=== PATIENT | female | born 1975 | race African-American/Black ===

== ENCOUNTER → 2020-01-21 09:09 | Outpatient (BNVA) | payer OTHER, SELFPAY | PROVIDERS: PCP Family Medicine; Visit Provider Anesthesiology | DX: M47.817 Spondylosis without myelopathy or radiculopathy, lumbosacral region (principal); M79.7 Fibromyalgia; E66.01 Morbid (severe) obesity due to excess calories | CPT/HCPCS: 99212 ==

== ENCOUNTER 2020-02-03 05:11 | Outpatient (REF) | payer OTHER, SELFPAY ==
--- NOTE | 2020-02-03 07:35 | FL_ITS ---
EXAMINATION: XR FLUOROSCOPY WITH IMAGES CLINICAL INFORMATION: M47.817 - Spondylosis without myelopathy or radiculopathy COMPARISON: 6 fluoroscopic spot views lumbar spine 02/23/2017 TECHNIQUE: Fluoroscopy performed by Elizabeth Thomas NP. Fluoroscopy time: 0.7 minutes DAP: 11.0 Gycm2 Images: 3 FINDINGS: There are spinal needles overlying the outer aspect of the bilateral lumbosacral junction neural foramen. SI joints are unremarkable. FL/FL guidance in treatment room IMPRESSION: Fluoroscopy for pain management procedures.
== END 2020-02-03 05:12 | disposition home or self-care (01) ==
LOC: HO.RADIR 05:11
PROVIDERS: Visit Provider Anesthesiology
DX: M47.817 Spondylosis without myelopathy or radiculopathy, lumbosacral region (principal); E66.01 Morbid (severe) obesity due to excess calories; M79.7 Fibromyalgia
CPT/HCPCS: 64493; 64494; J3300; Q9967

== ENCOUNTER → 2020-02-17 08:56 | Outpatient (BNVA) | payer OTHER, SELFPAY | PROVIDERS: PCP Family Medicine; Visit Provider Student in an Organized Health Care Education/Training Program | DX: Z76.89 Persons encountering health services in other specified circumstances (principal) ==

== ENCOUNTER → 2020-03-15 14:29 | Outpatient (BNVA) | payer OTHER, SELFPAY | PROVIDERS: PCP Family Medicine; Visit Provider Anesthesiology ==

== ENCOUNTER 2020-05-04 06:04 | Outpatient (REF) | payer OTHER, SELFPAY | END 2020-05-04 06:05 | disposition home or self-care (01) | LOC: HO.RADIR 06:04 | PROVIDERS: Visit Provider Anesthesiology | DX: Z13.89 Encounter for screening for other disorder (principal) ==

== ENCOUNTER 2020-06-08 06:27 | Outpatient (REF) | payer OTHER, SELFPAY | END 2020-06-08 06:28 | disposition home or self-care (01) | LOC: HO.RADIR 06:27 | PROVIDERS: Visit Provider Anesthesiology | DX: Z13.89 Encounter for screening for other disorder (principal) ==

== ENCOUNTER 2021-01-20 10:19 | Outpatient (REF) | payer OTHER, SELFPAY ==
--- NOTE | ~2021-01-20 | XR_ITS ---
EXAMINATION: XR KNEE-BILATERAL CLINICAL INFORMATION: Bilateral knee pain. COMPARISON: None TECHNIQUE: 4 views each of both knees. FINDINGS: Right knee: The bony alignments are intact. The cortices are intact. Articular margins, joint space appear unremarkable. Soft tissues are unremarkable. No evidence of any joint effusion seen. Left knee: Asymmetric decreased joint space is noted (medial greater than lateral and patellofemoral compartments with evidence of subchondral sclerosis and osteophyte formations. The bony alignments are intact. There is no evidence of any joint effusion present. No focal osseous abnormalities. The findings are consistent with [id number] medial compartmental osteoarthrosis. XR/XR knee RT 3V IMPRESSION: Unremarkable radiographic appearance of the right knee. [id number] medial compartmental osteoarthrosis of the left knee.
--- NOTE | ~2021-01-20 | XR_ITS ---
EXAMINATION: XR CERVICAL SPINE CLINICAL INFORMATION: Cervical pain. COMPARISON: None TECHNIQUE: 3 views of the cervical spine were obtained. FINDINGS: There are no prevertebral soft tissue or bony abnormalities demonstrated. No compression fractures or subluxations are identified. There is mild straightening of cervical lordosis. Alignment is maintained at the atlanto-axial articulation. The disc spaces are preserved. No endplate changes are seen. The prevertebral soft tissues are normal. The foramina are patent. XR/XR cervical spine 2V IMPRESSION: Mild straightening of cervical lordosis likely spasm. Otherwise unremarkable cervical spine exam.
--- NOTE | ~2021-01-20 | XR_ITS ---
EXAMINATION: XR KNEE-BILATERAL CLINICAL INFORMATION: Bilateral knee pain. COMPARISON: None TECHNIQUE: 4 views each of both knees. FINDINGS: Right knee: The bony alignments are intact. The cortices are intact. Articular margins, joint space appear unremarkable. Soft tissues are unremarkable. No evidence of any joint effusion seen. Left knee: Asymmetric decreased joint space is noted (medial greater than lateral and patellofemoral compartments with evidence of subchondral sclerosis and osteophyte formations. The bony alignments are intact. There is no evidence of any joint effusion present. No focal osseous abnormalities. The findings are consistent with [id number]-[id number] medial compartmental osteoarthrosis. XR/XR knee LT 3V IMPRESSION: Unremarkable radiographic appearance of the right knee. Grtj-ip-[id number] medial compartmental osteoarthrosis of the left knee.
[2021-01-20 11:42] LABS: MANUAL DIFF FLAG NO
[2021-01-20 11:56] LABS: Basophils Percent Auto 0.4 % (0-2); Eosinophils Absolute Auto 0.3 X10*3/uL (0.0-0.4); Eosinophils Percent Auto 3.1 % (0-4); Hematocrit 35.6 % (37.0-47.0); Hemoglobin 11.3 g/dl (12.0-16.0); Imm Gran Abs Auto 0.03 X10*3/uL (0.00-0.03); Imm Gran Pct Auto 0.4 % (0.0-0.4); Lymphocytes Absolute Auto 2.3 X10*3/uL (1.2-4.9); Lymphocytes Percent Auto 26.8 % (20-40); Mean Corpuscular HGB Conc 31.7 g/dl (31.0-35.0); Mean Corpuscular Volume 91.5 fL (80.0-98.0); Mean Platelet Volume 8.6 fL (9.4-12.3); Monocytes Absolute Auto 0.6 X10*3/uL (0.1-1.2); Neutrophils Absolute Auto 5.3 x10*3/uL (2.0-8.3); Neutrophils Percent Auto 62.3 % (45-73); Platelet Count 309 X10*3/uL (160-400); Red Blood Count 3.89 X10*6/uL (4.20-5.50); Red Cell Distribution Width 15.5 % (11.0-16.0); White Blood Count 8.4 X10*3/uL (4.8-10.8)
[2021-01-20 12:31] LABS: Alanine Aminotransferase 32 U/L (0-31); Albumin Level 3.9 g/dL (3.5-5.0); Alkaline Phosphatase 128 U/L (39-117); Anion Gap 12 (12-20); Aspartate Amino Transferase 19 U/L (5-31); Bilirubin Total < 0.2 mg/dL (0.0-1.0); Blood Urea Nitrogen 27 mg/dL (9-16); Calcium 9.4 mg/dL (8.4-10.2); Carbon Dioxide 24 mmol/L (22-29); Chloride 108 mmol/L (96-108); Estimated Glomerular Filt Rate > 60; Glucose Random 84 mg/dL (60-115); Potassium 3.9 mmol/L (3.3-5.1); Sodium 140 mmol/L (135-145); Total Protein 7.3 g/dL (6.5-8.0)
[2021-01-20 12:52] LABS: Vitamin D 25-OH Total 44.8 ng/mL (>30)
== END 2021-01-20 10:20 | disposition home or self-care (01) ==
LOC: HO.XRAY 10:19
PROVIDERS: PCP Family Medicine; Visit Provider Nurse Practitioner Family
DX: M47.817 Spondylosis without myelopathy or radiculopathy, lumbosacral region (principal); M79.7 Fibromyalgia; M54.2 Cervicalgia; M25.561 Pain in right knee; M25.562 Pain in left knee; M25.50 Pain in unspecified joint; R74.8 Abnormal levels of other serum enzymes
CPT/HCPCS: 36415; 72040; 73562; 80053; 82306; 85025; 99212

== ENCOUNTER → 2021-01-24 09:40 | Outpatient (BNVA) | payer OTHER, SELFPAY | PROVIDERS: PCP Family Medicine; Visit Provider Anesthesiology | DX: M47.817 Spondylosis without myelopathy or radiculopathy, lumbosacral region (principal); M79.7 Fibromyalgia; E66.01 Morbid (severe) obesity due to excess calories; Z68.43 Body mass index [BMI] 50.0-59.9, adult | CPT/HCPCS: 99212 ==

== ENCOUNTER → 2021-02-10 11:10 | Outpatient (BNVA) | payer OTHER, SELFPAY | PROVIDERS: PCP Family Medicine; Visit Provider Anesthesiology ==

== ENCOUNTER 2021-02-17 11:39 | Day surgery (SDC) | payer OTHER, SELFPAY ==
--- NOTE | 2021-02-16 13:49 | HO.ANESPROP2 ---
Documented by User: Sigrid Winston NP 02/16/21 13:51 HPI - Anesthesia Eval Consult details Narrative: 45yo F for Bilateral Medial Branch Block,L3-L5, PMFSH Active Problems Active Problems: All Active Problems (Updated 01/20/21 @ 10:56 by Ayde Helotn NP) Cervical spine pain (Acute) Bilateral knee pain (Acute) Polyarthralgia (Acute) Spondylosis of lumbosacral spine without myelopathy (Acute) Fibromyalgia (Acute) Morbid obesity (Acute) Past Medical History Medical History (Updated 02/17/21 @ 12:12 by Berta Pineda, RN) Asthma Bunion Facial pain Fibromyalgia HTN (hypertension) Iron deficiency anemia Iron deficiency anemia Liver dysfunction Morbid obesity Seizures Spinal stenosis of lumbar region Spondylosis of lumbosacral spine without myelopathy Surgical History Surgical History (Updated 02/17/21 @ 12:12 by Berta Pineda, RN) H/O brain surgery Hx of section Hx of foot surgery Social History Social History Alcohol intake: current Patient Tobacco Use Status: Never used Tobacco Use of substances other than those prescribed or required for medical reasons: Yes Substance Use Frequency: Occasionally Are you DNR?: No Advance Directives: No Advance Directives Information Provided: Yes Meds Allergies Allergy/AdvReac Type Severity Reaction Status Date / Time iodine Allergy Unknown unknown Verified 02/17/21 12:13 oxycodone [Percocet] Allergy Unknown unknown Verified 02/17/21 12:13 penicillin V Allergy Unknown unknown Verified 02/17/21 12:13 pregabalin Allergy Unknown unknown Verified 02/17/21 12:13 risperidone [Risperdal] Allergy Unknown unknown Verified 02/17/21 12:13 Contrast dye Allergy Unknown unknown Uncoded 01/20/21 10:34 Home Medications Medication Instructions Recorded Confirmed Last Taken Type acetaminophen 500 mg tablet 500 mg PO QID PRN 01/21/20 Unknown History bupropion HCl (smoking deter) 150 150 mg PO DAILY 01/21/20 02/17/21 07:30 History mg tablet,12 hr sustained-release(smoking deterrent) diphenhydramine HCl 25 mg tablet 25 mg PO TID PRN 01/21/20 Unknown History (Allergy (diphenhydramine)) fluticasone propionate 220 1 puff INHALATION BID 01/21/20 Unknown History mcg/actuation HFA aerosol inhaler levothyroxine 50 mcg tablet 50 mcg PO DAILY 01/21/20 02/17/21 07:30 History lidocaine 5 % topical patch 1 patch TOPICAL DAILY 01/21/20 Unknown History (Lidoderm) naproxen 500 mg tablet 500 mg PO BID 01/21/20 Unknown History pseudoephedrine HCl 30 mg tablet 30 mg PO Q4-6H PRN 01/21/20 Unknown History clonazepam 0.5 mg tablet 0.5 mg PO BEDTIME tab 01/20/21 Unknown History gabapentin 100 mg capsule 100 mg PO BID 01/20/21 02/17/21 07:30 History Exam Exam Date and Time: February 16, 2021 1349 Pertinent Lab Results Pertinent Lab Results: Laboratory Tests 01/20/21 01/20/21 11:39 11:39 WBC 8.4 Hgb 11.3 L Hct 35.6 L Plt Count 309 Sodium 140 Potassium 3.9 Chloride 108 Carbon Dioxide 24 BUN 27 H Creatinine 0.92 Assessment and Plan Assessment Anesthesia Assessment: Chart Reviewed Documented by User: Noah Owens 02/17/21 16:26 HPI - Anesthesia Eval Consult details Narrative: 45yo F for Bilateral Medial Branch Block,L3-L5, lary , sleep apnea , gerd , PMFSH Past Medical History Medical History (Updated 02/17/21 @ 12:12 by Berta Pineda RN) Asthma Bunion Facial pain Fibromyalgia HTN (hypertension) Iron deficiency anemia Iron deficiency anemia Liver dysfunction Morbid obesity Seizures Spinal stenosis of lumbar region Spondylosis of lumbosacral spine without myelopathy Functional capacity: uses cane/walker Family History Family history of problems with anesthesia: No Surgical History Surgical History (Updated 02/17/21 @ 12:12 by Berta Pineda RN) H/O brain surgery Hx of section Hx of foot surgery History of Problems with Anesthesia: No Social History Social History Alcohol intake: current Patient Tobacco Use Status: Never used Tobacco Use of substances other than those prescribed or required for medical reasons: Yes Substance Use Frequency: Occasionally Are you DNR?: No Advance Directives: No Advance Directives Information Provided: Yes Meds Allergies Allergy/AdvReac Type Severity Reaction Status Date / Time iodine Allergy Unknown unknown Verified 02/17/21 12:13 oxycodone [Percocet] Allergy Unknown unknown Verified 02/17/21 12:13 penicillin V Allergy Unknown unknown Verified 02/17/21 12:13 pregabalin Allergy Unknown unknown Verified 02/17/21 12:13 risperidone [Risperdal] Allergy Unknown unknown Verified 02/17/21 12:13 Contrast dye Allergy Unknown unknown Uncoded 01/20/21 10:34 Home Medications Medication Instructions Recorded Confirmed Last Taken Type acetaminophen 500 mg tablet 500 mg PO QID PRN 01/21/20 Unknown History bupropion HCl (smoking deter) 150 150 mg PO DAILY 01/21/20 02/17/21 07:30 History mg tablet,12 hr sustained-release(smoking deterrent) diphenhydramine HCl 25 mg tablet 25 mg PO TID PRN 01/21/20 Unknown History (Allergy (diphenhydramine)) fluticasone propionate 220 1 puff INHALATION BID 01/21/20 Unknown History mcg/actuation HFA aerosol inhaler levothyroxine 50 mcg tablet 50 mcg PO DAILY 01/21/20 02/17/21 07:30 History lidocaine 5 % topical patch 1 patch TOPICAL DAILY 01/21/20 Unknown History (Lidoderm) naproxen 500 mg tablet 500 mg PO BID 01/21/20 Unknown History pseudoephedrine HCl 30 mg tablet 30 mg PO Q4-6H PRN 01/21/20 Unknown History clonazepam 0.5 mg tablet 0.5 mg PO BEDTIME tab 01/20/21 Unknown History gabapentin 100 mg capsule 100 mg PO BID 01/20/21 02/17/21 07:30 History Exam Airway Mallampati Class: IV Neck ROM: Limited Loose/Missing/Broken Teeth: Yes (Bad dentation ) Heart: rrr Lungs: bl breath sounds Assessment and Plan Final Anesthetic Review Family History of Problems with Anesthesia: No History of Problems with Anesthesia: No NPO: Yes ASA Class: III Final Preanesthetic Review: Meds/Allgs Chart Reviewed, Consent Obtained/Reviewed and Anes Risks/Benef Reviewed Patient Risk: High Procedure Risk: Intermediate Anesthetic Plan Anesthetic Plan: GA Disposition: Standard PACU
[2021-02-17] VITALS (10 sets, daily range): BP systolic 113–153; BP diastolic 67–98; PULSE 74–82; RESP 16–18; TEMP 36.1–37.1; O2SAT 98–100; BMI 56.5
--- NOTE | ~2021-02-17 | FL_ITS ---
EXAMINATION: XR FLUOROSCOPY WITH IMAGES CLINICAL INFORMATION: Lumbosacral pain. COMPARISON: None. TECHNIQUE: Fluoroscopy performed by Dr. Genaro Vee. Fluoroscopy time: 1.0 minutes DAP: 22.3 Gycm2 Images: 7 FINDINGS: There are spinal needles overlying the area of bilateral outer L3, L4, and L5 neural foramen. FL/FL guidance in OR IMPRESSION: Fluoroscopy for pain management procedures.
--- NOTE | 2021-02-17 12:15 | MHC.SHP ---
Pre-Procedural Eval Section A Date of Service: 02/17/21 The patient is an INPATIENT: No Changes since office visit: Yes Patient answered all questions The History & Physical has been completed within 30 days and I have reviewed it.: No Section B Chief Complaint: spondylosis Details of Present Illness: as above Relevant Family History (Specify if Yes): No Relevant Social History: None Present Medications: see Short Stay Collaborative assessment Medical History: Significant History History of Previous Operations: No relevant previous surgery Allergies: Allergies Allergy/AdvReac Type Severity Reaction Status Date / Time iodine Allergy Unknown unknown Verified 02/17/21 12:13 oxycodone [Percocet] Allergy Unknown unknown Verified 02/17/21 12:13 penicillin V Allergy Unknown unknown Verified 02/17/21 12:13 pregabalin Allergy Unknown unknown Verified 02/17/21 12:13 risperidone [Risperdal] Allergy Unknown unknown Verified 02/17/21 12:13 Contrast dye Allergy Unknown unknown Uncoded 01/20/21 10:34 Review of Systems Sugical H&P ROS: Negative: Cardiovascular, Respiratory, Neurological, Psychiatric, Hem-Onc, Allergic/Immunologic, Gastrointestinal, Genitourinary, Musculoskeletal, Integumentary, Endocrine and Eyes/Ears/Nose/Throat and Yes, Specify: Constitution (morbid obesity) Exam Surgical H&P Exam: Normal: HEENT, Normal: Heart, Normal: Lungs, Normal: Extremities, Normal: Abdomen, Normal: Skin and Normal: Neurological Plan Diagnosis/Plan: Unchanged I have reviewed the history and physical and performed a pertinent physical examination on my patient. No changes have occurred unless specified.
[2021-02-17] MEDS: Lactated Ringers 1,000 ML 100 ML IVCONT (12:25)
--- NOTE | 2021-02-17 12:59 | P.OP_ITS ---
Operative Note Operative Note Date of Service: 02/17/21 Narrative: After obtaining informed consent the patient was brought to the operating room and she was position supine in stretcher. [employer] monitors were applied and anesthesia was induced using endotrac heal intubation. after that patient was transferred to the operating table prone. All pressure points were protected. Time-out was performed delineating correct site and side of the procedure. Name of the patient and date of of the patient has were also stated. The lower back of the patient was prepped with ChloraPrep and draped with sterile utility towels. C-arm was brought over the operating field and sq picture of L4 and L5 vertebra as were demonstrated on screen. The image was substantially compromised by the body mass of the patient. The point of interest were delineated as connection of the superior articular process of L4 with transverse process of L4 bilaterally, as well as connection of superior articular process of L5 with transverse process of L5 bilaterally, as well as connection of the superior articular process of S1 with sacral alae. Spondylotic spurs on the anterior spine were obscuring clear view of the targets at the S1 sacral ala connections. Calimating image I was able to delineate the targets little bit more clearly. 22 gauge 7 inch spinal needle was used to insert through the skin and advanced to were the point of interest in tunnel vision fashion. When needle gently contacted the bone injection of the contrast was not performed. Patient is allergic to the contrast. After that treatment solution of bupivacaine 0.5% mixed with Kenalog was injected into each needle position. Total dose of Kenalog was 60 mg. Upon completion of the procedures the needle was removed sterile dressing was applied. The patient tolerated procedure very well she was awaken, extubated and transferred stable to PACU for the recovery.
[2021-02-17 13:09] LABS: UPreg QC Valid YES
[2021-02-17 13:11] LABS: Urine Pregnancy NEGATIVE (NEGATIVE)
--- NOTE | 2021-02-17 14:16 | PM.OP ---
Brief Operative Note Date of Service: 02/17/21 Pre-op diagnosis: spondylosis lumbar spine Post-op diagnosis: same Procedure: therapeutic medial branch block L3-L4 does ramus L5 Implants: none Surgeon: Genaro Vee MD Anesthesia: GETA Was an Soft Sugar Operator Head used for this Procedure?: No Estimated blood loss (mL): 1 Pathology: none sent Condition: stable Disposition: PACU
== END 2021-02-17 17:05 | disposition home or self-care (01) ==
PROVIDERS: Nurse Practitioner; PCP Family Medicine; Visit Provider Anesthesiology
PROC: (CPT 64493; principal; 2021-02-17 13:00)
DX: M47.817 Spondylosis without myelopathy or radiculopathy, lumbosacral region (principal); G89.4 Chronic pain syndrome; M54.50 Low back pain, unspecified; M79.7 Fibromyalgia; E66.01 Morbid (severe) obesity due to excess calories; F43.10 Post-traumatic stress disorder, unspecified; G47.33 Obstructive sleep apnea (adult) (pediatric); I10 Essential (primary) hypertension; D50.9 Iron deficiency anemia, unspecified; E03.9 Hypothyroidism, unspecified; J45.909 Unspecified asthma, uncomplicated; G97.82 Other postprocedural complications and disorders of nervous system; Z86.011 Personal history of benign neoplasm of the brain; R41.3 Other amnesia; Z79.899 Other long term (current) drug therapy; Z79.51 Long term (current) use of inhaled steroids; Z99.89 Dependence on other enabling machines and devices; Z91.041 Radiographic dye allergy status; Z88.0 Allergy status to penicillin
CPT/HCPCS: 64493; 64494 ×2; 81025; J1100; J2250; J2405; J3010; J3300

== ENCOUNTER → 2021-03-21 12:08 | Outpatient (BNVA) | payer OTHER, SELFPAY | PROVIDERS: PCP Family Medicine; Visit Provider Anesthesiology ==

== ENCOUNTER → 2021-08-08 16:17 | Outpatient (BNVA) | payer OTHER, SELFPAY | PROVIDERS: PCP Family Medicine; Visit Provider Anesthesiology | DX: M47.817 Spondylosis without myelopathy or radiculopathy, lumbosacral region (principal); M79.7 Fibromyalgia; E66.01 Morbid (severe) obesity due to excess calories; Z68.43 Body mass index [BMI] 50.0-59.9, adult | CPT/HCPCS: 99212 ==

== ENCOUNTER 2021-09-26 07:30 | Outpatient (REF) | payer OTHER, SELFPAY ==
--- NOTE | ~2021-09-26 | XR_ITS ---
EXAMINATION: XR KNEE STANDING BILATERAL XR KNEE RIGHT XR KNEE LEFT CLINICAL INFORMATION: Knee pain. COMPARISON: Radiographs of the knees from 01/20/2021 TECHNIQUE: AP standing view both knees AP and lateral view of right knee AP and lateral view of left knee FINDINGS: AP standing view both knees: The evaluation is partially limited by patient's obese body habitus. There is mild narrowing of medial tibiofemoral joint space and marginal osteophyte formation at the left knee. Left knee: Small marginal osteophytes at the patellofemoral compartment. No fracture, subluxation or joint effusion. Right knee: Bones have normal alignment and joint spaces are maintained. XR/XR knee standing BI IMPRESSION: * Mild osteoarthritis of the patellofemoral and medial tibiofemoral compartments of the left knee. * No new findings at either knee compared to 01/20/2021.
--- NOTE | ~2021-09-26 | XR_ITS ---
EXAMINATION: XR KNEE STANDING BILATERAL XR KNEE RIGHT XR KNEE LEFT CLINICAL INFORMATION: Knee pain. COMPARISON: Radiographs of the knees from 01/20/2021 TECHNIQUE: AP standing view both knees AP and lateral view of right knee AP and lateral view of left knee FINDINGS: AP standing view both knees: The evaluation is partially limited by patient's obese body habitus. There is mild narrowing of medial tibiofemoral joint space and marginal osteophyte formation at the left knee. Left knee: Small marginal osteophytes at the patellofemoral compartment. No fracture, subluxation or joint effusion. Right knee: Bones have normal alignment and joint spaces are maintained. XR/XR knee LT 2V IMPRESSION: * Mild osteoarthritis of the patellofemoral and medial tibiofemoral compartments of the left knee. * No new findings at either knee compared to 01/20/2021.
--- NOTE | ~2021-09-26 | XR_ITS ---
EXAMINATION: XR KNEE STANDING BILATERAL XR KNEE RIGHT XR KNEE LEFT CLINICAL INFORMATION: Knee pain. COMPARISON: Radiographs of the knees from 01/20/2021 TECHNIQUE: AP standing view both knees AP and lateral view of right knee AP and lateral view of left knee FINDINGS: AP standing view both knees: The evaluation is partially limited by patient's obese body habitus. There is mild narrowing of medial tibiofemoral joint space and marginal osteophyte formation at the left knee. Left knee: Small marginal osteophytes at the patellofemoral compartment. No fracture, subluxation or joint effusion. Right knee: Bones have normal alignment and joint spaces are maintained. XR/XR knee RT 2V IMPRESSION: * Mild osteoarthritis of the patellofemoral and medial tibiofemoral compartments of the left knee. * No new findings at either knee compared to 01/20/2021.
== END 2021-09-26 07:31 | disposition home or self-care (01) ==
LOC: HO.HOSX 07:30
PROVIDERS: Visit Provider Physician Assistant
DX: M17.0 Bilateral primary osteoarthritis of knee (principal)
CPT/HCPCS: 73560; 73565; 99202

== ENCOUNTER 2021-10-14 07:17 | Outpatient (REF) | payer OTHER, SELFPAY ==
--- NOTE | ~2021-10-14 | XR_ITS ---
EXAMINATION: XR FOOT, LEFT CLINICAL INFORMATION: Pain COMPARISON: CT left foot 12/19/2021 TECHNIQUE: AP, lateral, and oblique views of the left foot. FINDINGS: There are postsurgical changes of plate and screw internal fixation of the first metatarsal. Hardware appears intact. There is a horizontal ill-defined lucency in the distal metatarsal shaft, which could represent portion of the fracture plane. The fracture planes otherwise not be evident by x-ray. Redemonstrated is resection of the distal fifth metatarsal. No evidence of acute fracture or dislocation. Tarsometatarsal alignment is maintained. There is a rounded nonaggressive appearing lucency in the calcaneus. XR/XR foot LT min 3V IMPRESSION: Postsurgical changes of internal fixation of the first metatarsal. Hardware intact. Findings suggestive of partial healing. No evidence of acute fracture.
== END 2021-10-14 07:18 | disposition home or self-care (01) ==
LOC: HO.HOSX 07:17
PROVIDERS: Visit Provider Physician Assistant
DX: M17.0 Bilateral primary osteoarthritis of knee (principal); M79.672 Pain in left foot; R60.9 Edema, unspecified; Z96.9 Presence of functional implant, unspecified
CPT/HCPCS: 20610; 73630; 99212; J7323

== ENCOUNTER → 2021-10-21 09:54 | Outpatient (BNVA) | payer OTHER, SELFPAY | PROVIDERS: PCP Family Medicine; Visit Provider Physician Assistant | DX: M17.0 Bilateral primary osteoarthritis of knee (principal) | CPT/HCPCS: 20610; J7323 ==

== ENCOUNTER → 2021-11-07 10:12 | Outpatient (BNVA) | payer OTHER, SELFPAY | PROVIDERS: PCP Family Medicine; Visit Provider Physician Assistant | DX: M17.0 Bilateral primary osteoarthritis of knee (principal) | CPT/HCPCS: 20610; J7323 ==

== ENCOUNTER → 2022-01-13 10:13 | Outpatient (BNVA) | payer OTHER, SELFPAY | PROVIDERS: PCP Family Medicine; Visit Provider Nurse Practitioner Family | DX: M79.7 Fibromyalgia (principal); M17.0 Bilateral primary osteoarthritis of knee; M25.50 Pain in unspecified joint; M25.511 Pain in right shoulder; Z79.899 Other long term (current) drug therapy | CPT/HCPCS: 99212 ==

== ENCOUNTER 2022-12-28 14:05 | Outpatient (AMB) | payer OTHER, SELFPAY ==
--- NOTE | 2022-12-28 14:31 | MHC.OFFVIS ---
Intake Vital Signs 12/28/22 14:32 Height 5 ft 5 in Weight 376 lb 6 oz BMI 62.6 BP 129/70 Blood Pressure Location Lt radial Position Sitting Respiration 20 Pulse 101 H Pulse Source Pulse Oximeter Pulse Oximetry (%) 94 Oxygen Delivery Method Room Air Intake Visit Reasons: BACK AND NECK PAIN /Confirmed Allergies iodine Allergy (Unknown, Verified 12/28/22 14:31) unknown oxycodone [Percocet] Allergy (Unknown, Verified 12/28/22 14:31) unknown penicillin V Allergy (Unknown, Verified 12/28/22 14:31) unknown pregabalin Allergy (Unknown, Verified 12/28/22 14:31) unknown risperidone [Risperdal] Allergy (Unknown, Verified 12/28/22 14:31) unknown Contrast dye Allergy (Unknown, Uncoded 01/13/22 10:44) unknown HPI HPI Comments History of Present Illness Details Josi presents back to the office today for follow up neck and back pain. She had been taking Tizanidine as prescribed by Dr Vee but has since run out. She would like refill of this medication today. She reports pain is worse during the day and afternoon. Plan at last visit was bilateral L5 Sprint PNS with local anesthetic, she would like to proceed with this as previously discussed. She would like to lose weight, she has been restricting calories but is struggling with weight loss. She hopes that losing weight will help with her overall health and pain. Prior: Excellent results of L3 L4-5 therapeutic MBB on 02/17/2021. She requests me to repeat the therapeutic medial branch blocks however the original medial branch block was very difficult due to significant distance between the patient's skin in the target. I was using longus needles and they were all the way up to the hub to the targets. I thing that my ability to perform radiofrequency ablation is very limited in this patient's case. I thing the only option we have here is to perform a trial of SPRINT PNS. This procedure will be done with 1 week interval 1st on the left and then on the right. After that she will were the stimulating device for 8 weeks and we will probably be able to reduce her pain very low levels for the next 6 months to a year. Prior: Josi is very pleasant 44 y/o presents with chronic worsening lower back pain. She is severely morbidly obese and my ability to reach her medial branches with radiofrequency cannulas could be compromise by body mass. In the past she has trialed Physical therapy, performs daily exercises, and trialed medications without relief. She does some pain relief with aquatic exercise at the gym however it is only temporary. Her past surgical history significant for incidental meningioma discovery with following meningioma excision from the brain. She reports some memory loss after brain surgery. She reported that she was denied bariatric surgery because of her memory loss. 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 Answers questions appropriately. Fully engaged in examination. Skin: warm, dry, intact HEENT: Normocephalic. Hearing intact. Cardiac: External chest normal in appearance. Respiratory: No cough, audible wheezing or stridor. Abdomen: without gross distension. MS: No obvious swelling or deformities. Able to transition from sit to stand unassisted. Ambulates with use of a cane Neurological: Oriented to person, place, time and situation. Thought process intact. Psychiatric: Appropriate mood and affect. Good judgment and insight. Results Reviewed Results Reviewed: MRI lumbar spine 2014.: There is a mild rotator levoscoliosis with affects at L4. Intervertebral disc height and signal are normal. The vertebral bodies have normal contour. Marrow signal is homogeneous. The visualized retroperitoneal structures are unremarkable. Conus at L2. Spinal levels L1-L2 mild facet arthropathy and ligamentum flavum hypertrophy. Posterior disc contour is normal no central stenosis or foraminal narrowing. L2-L3: Mild bilateral facet arthropathy and ligamentum flavum hypertrophy disc contour is normal no central stenosis or foraminal narrowing. L3-L4 mild bilateral facet arthropathy and ligamentum flavum hypertrophy. Broad-based posterior disc bulge the neural foramina patent there is no central stenosis. L4-5 mild bilateral facet arthropathy and ligamentum flavum hypertrophy which is more prominent on the left. Posterior disc contour is normal there is no central stenosis or foraminal narrowing. L5-S1 there is [id number] bilateral facet arthropathy there is small central disc protrusion with an annular fissure without significant distortion of the thecal sac or traversing nerve root encroachment. There are small bilateral foraminal disc protrusions more prominent on the left. There may be mild encroachment of exiting left L5 nerve root from facet osteophytes no traversing nerve root encroachment is seen. Assessment & Plan Assessment & Plan (1) Morbid obesity: Code(s): E66.01 - Morbid (severe) obesity due to excess calories (2) Fibromyalgia: Code(s): M79.7 - Fibromyalgia (3) Spondylosis of lumbosacral spine without myelopathy: Code(s): M47.817 - Spondylosis without myelopathy or radiculopathy, lumbosacral region Plan Patient presents to the office for follow up chronic back pain. She was previously offered Bilateral L5 Sprint PNS, was not able to be reached to schedule. She would like to proceed with Bilateral Sprint PNS Trial at this time, Left side first with right side to follow after 2 weeks. Will restart Tizanidine 2mg po BID as needed, she takes sleep medicine already, she was advised not to take this at night with her other medications. May cause drowsiness, no driving while taking this medication. Referral placed for Weight Management at [facility] [place]. Patient is ready and actively trying to lose weight. All questions and concerns were addressed during the visit. Patient agrees with the plan. Follow up in the office after Sprint, sooner if needed. Orders: Referrals Medical Weight Management Referral E66.01 - Morbid (severe) obesity due to excess calories Medications: Changed From tizanidine 6 mg PO TID 30 days PRN 90 caps 8RF for muscle spasm To tizanidine 6 mg PO BID 30 days PRN 60 caps 3RF for muscle spasm Coding Level of Care Code Est Pt Level 4 (68902) Diagnoses Morbid obesity E66.01 Fibromyalgia M79.7 Spondylosis of lumbosacral spine without myelopathy M47.817
[2022-12-28 14:32] VITALS: BP 129/70; PULSE 101; RESP 20; O2SAT 94; BMI 62.6
== END 2022-12-28 14:43 | disposition home or self-care (01) ==
PROVIDERS: PCP Family Medicine; Visit Provider Registered Nurse Emergency
DX: M79.7 Fibromyalgia (principal); M47.817 Spondylosis without myelopathy or radiculopathy, lumbosacral region; E66.01 Morbid (severe) obesity due to excess calories; Z68.44 Body mass index [BMI] 60.0-69.9, adult
CPT/HCPCS: 99214

== ENCOUNTER → 2022-12-28 14:05 | Outpatient (BNVA) | payer OTHER, SELFPAY | PROVIDERS: PCP Family Medicine; Visit Provider Registered Nurse Emergency | DX: M47.817 Spondylosis without myelopathy or radiculopathy, lumbosacral region (principal); M79.7 Fibromyalgia; E66.01 Morbid (severe) obesity due to excess calories; Z68.44 Body mass index [BMI] 60.0-69.9, adult | CPT/HCPCS: 99212 ==

== ENCOUNTER 2023-07-26 09:58 | Outpatient (REF) | payer OTHER, SELFPAY ==
[2023-07-26 11:16] LABS: MANUAL DIFF FLAG NO
[2023-07-26 11:45] LABS: Basophils Percent Auto 0.2 % (0-2); Eosinophils Absolute Auto 0.1 X10*3/uL (0.0-0.4); Eosinophils Percent Auto 0.6 % (0-4); Hemoglobin 11.3 g/dl (12.0-16.0); Imm Gran Abs Auto 0.05 X10*3/uL (0.00-0.03); Imm Gran Pct Auto 0.5 % (0.0-0.4); Lymphocytes Absolute Auto 1.9 X10*3/uL (1.2-4.9); Lymphocytes Percent Auto 17.4 % (20-40); Mean Corpuscular HGB Conc 31.4 g/dl (31.0-35.0); Mean Corpuscular Volume 92.5 fL (80.0-98.0); Mean Platelet Volume 8.5 fL (9.4-12.3); Monocytes Absolute Auto 0.7 X10*3/uL (0.1-1.2); Monocytes Percent Auto 6.4 % (2-11); Neutrophils Percent Auto 74.9 % (45-73); Platelet Count 310 X10*3/uL (160-400); Red Blood Count 3.89 X10*6/uL (4.20-5.50); Red Cell Distribution Width 15.3 % (11.0-16.0); White Blood Count 10.7 X10*3/uL (4.8-10.8)
[2023-07-26 12:04] LABS: Alanine Aminotransferase 26 U/L (0-31); Albumin Level 4.2 g/dL (3.5-5.0); Alkaline Phosphatase 134 U/L (39-117); Anion Gap 10 (12-20); Aspartate Amino Transferase 17 U/L (5-31); Bilirubin Total 0.2 mg/dL (0.0-1.0); Blood Urea Nitrogen 16 mg/dL (9-16); C Reactive Protein 4.18 mg/dL (< or = 0.50); Calcium 9.5 mg/dL (8.4-10.2); Carbon Dioxide 27 mmol/L (22-29); Chloride 107 mmol/L (96-108); Estimated Glomerular Filt Rate > 60; Glucose Random 92 mg/dL (60-115); Potassium 3.5 mmol/L (3.3-5.1); Sodium 140 mmol/L (135-145); Total Protein 7.7 g/dL (6.5-8.0)
[2023-07-26 12:26] LABS: Erythrocyte Sedimentation Rate 36 MM/HR (0-20)
== END 2023-07-26 09:59 | disposition home or self-care (01) ==
LOC: HO.LAB 09:58
PROVIDERS: Absent Provider Nurse Practitioner Family; PCP Family Medicine; Visit Provider Anesthesiology
DX: Z79.1 Long term (current) use of non-steroidal anti-inflammatories (NSAID) (principal)
CPT/HCPCS: 36415; 80053; 85025; 85652; 86140; 99212

== ENCOUNTER 2023-07-26 09:58 | Outpatient (AMB) | payer OTHER, SELFPAY ==
--- NOTE | 2023-07-26 10:06 | A.OFFVIS_ITS ---
Vital Signs 07/26/23 10:12 Height 5 ft 5 in Weight 391 lb BMI 65.1 BP 150/82 H Blood Pressure Location Lt brachial Position Sitting Respiration 18 Pulse 92 Pulse Source Pulse Oximeter Pulse Oximetry (%) 96 Oxygen Delivery Method Room Air Intake Visit Reasons: Back and Neck Pain Intake Note: Patient comes in for back and neck pain. Reports pain 09/21. Allergies iodine Allergy (Unknown, Verified 07/26/23 10:11) unknown oxycodone [Percocet] Allergy (Unknown, Verified 07/26/23 10:11) unknown penicillin V Allergy (Unknown, Verified 07/26/23 10:11) unknown pregabalin Allergy (Unknown, Verified 07/26/23 10:11) unknown risperidone [Risperdal] Allergy (Unknown, Verified 07/26/23 10:11) unknown Contrast dye Allergy (Unknown, Uncoded 01/13/22 10:44) unknown HPI Comments Details: Josi presents back to the office today for follow up neck and back pain. She also complains on pain in bilateral knees. I offered her genicular nerve block but she refused. I offered her therapeutic medial branch block however she is not very eager for this. She reports that tizanidine helps her pain. Sprint PNS was considered however the length of the needle which would require to insert the device would be not enough for her body dimensions. She experiences mobility limitations. We will contact the office of the primary care doctor and we will express our opinion that the patient needs motorized wheelchair or scooter. Prior: Excellent results of L3 L4-5 therapeutic MBB on 02/17/2021. She requests me to repeat the therapeutic medial branch blocks however the original medial branch block was very difficult due to significant distance between the patient's skin in the target. I was using longus needles and they were all the way up to the hub to the targets. I thing that my ability to perform radiofrequency ablation is very limited in this patient's case. I thing the only option we have here is to perform a trial of SPRINT PNS. This procedure will be done with 1 week interval 1st on the left and then on the right. After that she will were the stimulating device for 8 weeks and we will probably be able to reduce her pain very low levels for the next 6 months to a year. Prior: Josi is very pleasant 44 y/o presents with chronic worsening lower back pain. She is severely morbidly obese and my ability to reach her medial branches with radiofrequency cannulas could be compromise by body mass. In the past she has trialed Physical therapy, performs daily exercises, and trialed medications without relief. She does some pain relief with aquatic exercise at the gym however it is only temporary. Her past surgical history significant for incidental meningioma discovery with following meningioma excision from the brain. She reports some memory loss after brain surgery. She reported that she was denied bariatric surgery because of her memory loss. [facility] Medical History (Updated 04/24/23 @ 18:51 by Alicia Joshua, [employer] [facility]) correction (current) use of non-steroidal anti-inflammatories (nsaid) Iron deficiency anemia Iron deficiency anemia Seizures Asthma HTN (hypertension) Bunion Facial pain Spinal stenosis of lumbar region Liver dysfunction Spondylosis of lumbosacral spine without myelopathy Fibromyalgia Morbid obesity Surgical History Hx of foot surgery Hx of section H/O brain surgery 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 Review of Systems Const All systems reviewed & are unremarkable except as noted in HPI and below Physical Exam Const Nutritional Appearance: obese morbidly obese Eyes General: appearance normal, both eyes and all related structures Pupils: Equal, round and reactive pupils present EOM: EOMs intact bilaterally Neck Neck: Yes full ROM Chest Chest palpation & inspection: normal inspection of the chest Resp Effort & Inspection: normal respiratory effort, able to speak in complete sentences, normal respiratory pattern, no audible wheezes and no cough Cardio Jugular venous distension: no JVD GI Inspection: Yes normal to inspection Back/Spine/Pelvis Other: TTP 18/18 TP. Full ROM of lumbar spine, hips, knees, and ankles.. EXTREMITIES: no clubbing, cyanosis, or edema. NEUROLOGIC: L2-S1 b/l strength 5/5. Sensation intact to light touch in L2-S1 b/l. DTR's 2+ patella/achilles b/l. Reports chronic use of walker for ambulation even with no regard of recent bunion surgery. Reports bilateral weakness of the lower extremity. Neuro Cranial nerves: Yes Equal, round and reactive pupils present Gait exam (Neuro): Normal gait present Motor exam (neuro): 5/5 motor strength present throughout Extrem General: No pedal edema Psych Speech and movement: Normal speech and movement present Affect: normal affect Attitude: cooperative Thought process: Normal thought process present Thought content: Normal thought content present Insight: Good insight present (Psych) Judgement: Good judgement present (Psych) Assessment & Plan Assessment & Plan (1) Morbid obesity: Code(s): E66.01 - Morbid (severe) obesity due to excess calories Category: Medical (2) Fibromyalgia: Code(s): M79.7 - Fibromyalgia Category: Medical (3) Spondylosis of lumbosacral spine without myelopathy: Code(s): M47.817 - Spondylosis without myelopathy or radiculopathy, lumbosacral region Category: Medical Plan Patient presents to the office for follow up chronic back pain, fibromyalgia, chronic neck pain, chronic knee pain. She is severely morbidly obese. Her BMI is 62. Her weight is 375 lb. She was previously offered Bilateral L5 Sprint PNS, was not able to be reached to schedule. However unlikely I will be able to reach now the targets with recommended angle of the insertion of the stimulating wire, she also presents a high-risk of element of the wire retention. She has limitations on the mobility and requests me to write a script for her for wheelchair or motorized scooter. I will contact primary care physician office and expressed my opinion that she will benefit from motorized scooter on motorized wheelchair. Coding Level of Care Code Est Pt Level 3 (49901) Diagnoses Morbid obesity E66.01 Fibromyalgia M79.7 Spondylosis of lumbosacral spine without myelopathy M47.817
[2023-07-26 10:12] VITALS: BP 150/82; PULSE 92; RESP 18; O2SAT 96; BMI 65.1
== END 2023-07-26 10:25 | disposition home or self-care (01) ==
PROVIDERS: PCP Family Medicine; Visit Provider Anesthesiology
DX: M47.817 Spondylosis without myelopathy or radiculopathy, lumbosacral region (principal); M79.7 Fibromyalgia; E66.01 Morbid (severe) obesity due to excess calories
CPT/HCPCS: 99213

== ENCOUNTER 2023-07-27 14:44 | Outpatient (AMB) | payer OTHER, SELFPAY ==
--- NOTE | 2023-07-27 14:43 | MHC.OFFVIS ---
Vital Signs 07/27/23 14:49 Height 5 ft 5 in BP 142/74 H Blood Pressure Location Rt brachial Position Sitting Pulse 78 Pulse Source Pulse Oximeter Pulse Oximetry (%) 96 Oxygen Delivery Method Room Air Intake Visit Reasons: FM Intake Note: Patient last seen 01/13/22 by Sunitha, presents today for FM. Pt reports she fell from her bed this morning and has knee pain. Unable to reconcile meds entirely, pt stated she has nurses that come to her house everyday. Difficulty ambulating, uses cane Wound Care Rn Required: No Accompanied by: Self / Same As Patient Allergies iodine Allergy (Unknown, Verified 07/27/23 14:54) unknown oxycodone [Percocet] Allergy (Unknown, Verified 07/27/23 14:54) unknown penicillin V Allergy (Unknown, Verified 07/27/23 14:54) unknown pregabalin Allergy (Unknown, Verified 07/27/23 14:54) unknown risperidone [Risperdal] Allergy (Unknown, Verified 07/27/23 14:54) unknown Contrast dye Allergy (Unknown, Uncoded 07/27/23 14:54) unknown Followed by:: Pain management HPI Comments Details: Ms. Fransisco Burgess yoF presents for follow-up of Fibromyalgia and OA last seen in the office 01/2022. She is here for review of labs for renewal of prescription for diclofenac gel which helps with her joint pain. She is recovering from surgery to the left foot. She continues to have symptoms of fibromylagia. She reports that her pain is head to toe. She continues to take tizanidine as needed and gabapentin daily. She states that she is not able to exercise due to her pain. She follows with mental health twice a week. She states that she is sleeping well and her depression is well controlled. She is following with ortho for bilateral knee OA and received her 3rd Euflexxa dose in October 2021, she states her pain is unchanged and is worse on the left. She also follows with pain management for her back pain. Patient has a 2017 history of slightly positive LACY 1:80. Denies Raynaud's, oral ulcers, rash. elevated CRP 01/2022; 46yoF presents for follow-up of Fibromyalgia. Last seen in January 2021. She continues to have symptoms of fibromylagia, worse with the cold damp weather. She reports that her pain is head to toe. She continues to take tizanidine as needed and gabapentin daily. She states that she is not able to exercise due to her pain. She follows with mental health twice a week. She states that she is sleeping well and her depression is well controlled. She is following with ortho for bilateral knee OA and received her 3rd Euflexxa dose in October, she states her pain is unchanged and is worse on the left. She also follows with pain management for her back pain. She received MBB with good effect in the past but the procedure was difficult to perform, pain Management has discussed sprint procedure, patient states this was not covered by her insurance. Patient has a history of slightly positive LACY 1:80. Denies Raynaud's, oral ulcers, rash. She states that she gets overheated in the sun. 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 Father No problems noted. 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 Constitutional: Non-toxic appearing. No acute distress. Well-developed and well-nourished. HEENT: Normocephalic and atraumatic. External auditory canals without erythema or edema bilaterally. Dry mucous membranes. No pharyngeal erythema or exudates. Skin: Warm and dry. No rashes or lesions noted. Manuelito bandaged to left foot Neck: Full and painless range of motion. No cervical lymphadenopathy. Cardio: Regular rate and rhythm. No murmurs, gallops, or rubs. No lower extremity edema. No JVD. Pulmonary: No respiratory distress. No accessory muscle usage. Musculoskeletal: Normal range of motion in joints throughout the body. No deformity or other signs of injury. Neuro: Alert and oriented x4. Cranial nerves 2-12 grossly intact. No focal deficits appreciated. APPEARANCE: Patient in no acute distress. Morbidly obese. EYES: no redness, pupils equal and reactive to light, eyelids normal EARS: External ear normal, canal clear and tympanic membrane normal. NOSE/SINUS: Airflow through both nares, no nasal discharge, no bleeding THROAT: Oral mucosa moist, no ulcerations NECK: No thyromegaly or masses, no adenopathy, trachea midline. HEART: Regular rhythm, S1-S2 heard, no murmurs, rubs or gallops. LUNG: Clear to auscultation, respiratory rate regular nonlabored. ABD: Normal bowel sounds, no organomegaly, masses or tenderness. EXTREMITIES: No edema, no calf tenderness, normal peripheral pulses. NEURO: Oriented and alert x3. No focal weakness. Gait normal. SKIN: No inflammatory or neoplastic lesions. Normal color and turgor JOINT EXAM:?? Cervical Spine: Full range of motion without pain; no tenderness. Thoracic Spine:? No scoliosis.? No tenderness on palpation. Lumbar Spine:? Alignment normal.? Full range of motion, pain with flexion and extension. Tenderness to palpation over the lumbar spine. Hands:? Normal pain-free range of motion without tenderness, swelling, increased warmth or erythema. Able to make a full fist and has a good senior merchandiser strength. Wrists:? Normal pain-free range of motion without tenderness, swelling, increased warmth or erythema. Elbows:Normal pain-free range of motion without tenderness, swelling, increased warmth or erythema. Shoulders: LEFT:?? Full range of motion without pain. No tenderness, weakness, swelling, increased warmth or erythema. RIGHT: Unable to abduct, or flex the shoulder greater than 90 degrees. Unable to complete internal rotation. Widespread diffuse tenderness to palpation throughout the shoulder. Hips: Full range of motion without pain. Pain reported in the lower back with hip range of motion. Hip bursa:No tenderness. Knees:.?? LEFT: Normal pain-free range of motion. Tenderness to palpation along the medial and lateral joint line. No swelling, increased warmth or erythema.? There is no effusion or crepitation. Widespread diffuse tenderness to palpation along the rivas. RIGHT: Normal pain-free range of motion. Tenderness to palpation along the medial and lateral joint line. No swelling, increased warmth or erythema.? There is no effusion or crepitation. Widespread diffuse tenderness to palpation along the rivas. Ankles:.? Normal pain-free range of motion without tenderness, swelling, increased warmth or erythema. Feet: LEFT: Normal pain-free range of motion without swelling, increased warmth or erythema. Widespread diffuse tenderness to palpation throughout. Old scar noted from bunionectomy. RIGHT: Normal pain-free range of motion without swelling, increased warmth or erythema. Widespread diffuse tenderness to palpation throughout. Tender points:Tenderness to digital palpation at the occiput, trapezius, second rib, lateral epicondyle, knees, greater trochanter and gluteal area bilaterally. Results Reviewed Results Reviewed: Laboratory Tests 07/26/23 11:15 WBC 10.7 RBC 3.89 L Hgb 11.3 L Hct 36.0 L ESR 36 H Creatinine 0.87 Estimated GFR > 60 AST 17 ALT 26 Alkaline Phosphatase 134 H C-Reactive Protein 4.18 H Total Protein 7.7 Albumin 4.2 Assessment & Plan Assessment & Plan (1) Polyarthralgia: Code(s): M25.50 - Pain in unspecified joint Category: Medical (2) Osteoarthritis of knees, bilateral: Code(s): M17.0 - Bilateral primary osteoarthritis of knee Category: Medical Qualifiers: Osteoarthritis type: primary Qualified Code(s): M17.0 - Bilateral primary osteoarthritis of knee (3) [facility] (current) use of non-steroidal anti-inflammatories (nsaid): Code(s): Z79.1 - [facility] (current) use of non-steroidal anti-inflammatories (NSAID) Category: Medical Plan #Polyarthralgia likely due to underlying fibromyalgia and morbid obesity. Previous serology unrevealing except for positive LACY 1:80 and elevated CRP in 2017. No synovitis noted on exam. Patient has widespread diffuse tenderness to palpation of her joints and muscles with multiple fibromyalgia tender points on exam. Patient is on gabapentin for her fibromyalgia, previously on cyclobenzaprine and savella. Also taking tizanidine prescribed by pain management. On exam she has pain and limited range of motion in the right shoulder. At the 01/2022 visit xray ordered but was not completed but she did PT which she says helped. Recheck of CRP and sed rate shows more elevation, especially CRP at 4.18. She would like a refill of diclofenac gel. #Knee OA: She is following with Ortho for bilateral knee pain receiving Euflexxa; and left foot pain with s/p surgery. Continue follow-up with pain management for chronic back pain. #Snf Use of NSAIDs: Educated patient that with retirement use of NSAIds it is beneficial to the patient to have interval monitoring for kidney, liver and anemia. That is the reason for requesting her blood work and requiring a visit for med refills. She has the option to ask ortho or PCP to take over the medication since this is the only one we are prescribing and that will be one less MD visit for her. The obesity (391 lbs) is likely the main reason for the elevated ESR/CRP 1 year sooner if needed with labs 1 week before visit. 25 minutes spent reviewing chart, evaluating patient and documenting. Orders: Orders Erythrocyte Sedimentation Rate 1 Year M25.50 - Pain in unspecified joint, Z79.1 - [facility] (current) use of non-steroidal anti-inflammatories (NSAID) Comprehensive Met. 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
[2023-07-27 14:49] VITALS: BP 142/74; PULSE 78; O2SAT 96
== END 2023-07-27 15:31 | disposition home or self-care (01) ==
LOC: HO.RHE 14:44
PROVIDERS: PCP Family Medicine; Visit Provider Nurse Practitioner Family
DX: M25.50 Pain in unspecified joint (principal); M17.0 Bilateral primary osteoarthritis of knee; Z79.1 Long term (current) use of non-steroidal anti-inflammatories (NSAID)
CPT/HCPCS: 99214

== ENCOUNTER → 2023-07-27 14:44 | Outpatient (BNVA) | payer OTHER, SELFPAY | PROVIDERS: PCP Family Medicine; Visit Provider Nurse Practitioner Family | DX: M25.50 Pain in unspecified joint (principal); M17.0 Bilateral primary osteoarthritis of knee; Z79.1 Long term (current) use of non-steroidal anti-inflammatories (NSAID) | CPT/HCPCS: 99212 ==

== ENCOUNTER 2023-08-23 09:57 | Outpatient (AMB) | payer OTHER, SELFPAY ==
--- NOTE | 2023-08-23 10:02 | A.OFFVIS_ITS ---
Vital Signs 08/23/23 10:06 Height 5 ft 5 in Weight 391 lb BMI 65.1 Intake Visit Reasons: OV - B/L knee OA Intake Note: Josi is a 48 year old female who presents today for a follow up of her bilateral knee OA, last euflexxa gel injections 11/07/21. Patient reports that her gel injections gave her about 2 months of relief. She expresses in the mean time she would like a cortisone injection. Patient feels that her right knee is worse than the left. Hx of left foot surgery on 06/11/23. Allergies iodine Allergy (Unknown, Verified 07/27/23 14:54) unknown oxycodone [Percocet] Allergy (Unknown, Verified 07/27/23 14:54) unknown penicillin V Allergy (Unknown, Verified 07/27/23 14:54) unknown pregabalin Allergy (Unknown, Verified 07/27/23 14:54) unknown risperidone [Risperdal] Allergy (Unknown, Verified 07/27/23 14:54) unknown Contrast dye Allergy (Unknown, Uncoded 07/27/23 14:54) unknown HPI HPI OV - B/L knee OA : Details: 48-year-old right hand dominant female who presents in the office today for a follow-up of bilateral knee osteoarthritis. I last saw the patient in the office on 11/07/2021 when she received her third Euflexxa injection in the bilateral knees.? ? The patient was seen at [facility] on 02/23/2023 for a second opinion. She received a cortisone injection in the bilateral knees. ?? ? BMI of 65.1 as of 08/23/2023.? ? While in the office today, the patient reports the Gel injection gave her about two months of relief. She reports the right knee is worse than the left knee. She also reports frequent falls. She states she has not been seen by physical therapy in a year and does not feel the exercises were helping her. ? Patient presents in the office today in a wheelchair. ?? Patient is currently followed by Rheumatology. ?? Patient has a history of left foot surgery on 06/11/2023.? Patient has a medical history of fibromyalgia. ? [facility], [facility] Medical History (Updated 08/23/23 @ 10:33 by Anabell Knox) [facility] (current) use of non-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 Father No problems noted. 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 No ecchymosis, erythema, or joint effusion. No tenderness to palpation along the medial or lateral joint lines. Full knee extension and flexion. Negative Luciana's. Negative anterior drawer. NVI.?? ? Office Procedures Joint Injection/Drain Joint Injection/Drain Primary Site: right knee Secondary Site: left knee Prep: site was prepped using aseptic technique, ethochloride spray was applied and injection warnings given Injected: 80 mg of, DepoMedrol, with 8 mL of (2% plain lido ) and in the joint Approach Used: anterolateral Procedure: The patient tolerated the procedure well, but had some pain with the injection and there was some relief with the local anesthesia Coding 42778 - Large joint Procedure code (CPT) selection complete Assessment & Plan Assessment & Plan (1) Osteoarthritis of right knee: Code(s): M17.11 - Unilateral primary osteoarthritis, right knee Category: Medical (2) Osteoarthritis of left knee: Code(s): M17.12 - Unilateral primary osteoarthritis, left knee Category: Medical (3) Morbid obesity: Code(s): E66.01 - Morbid (severe) obesity due to excess calories Category: Medical Plan Ms. Moody is a 48-year-old right hand dominant female who presents in the office today for a follow-up of bilateral knee osteoarthritis. I last saw the patient in the office on 11/07/2021 when she received her third Euflexxa injection in the bilateral knees.? ? The patient was seen at [facility] on 02/23/2023 for a second opinion. She received a cortisone injection in the bilateral knees. ?? ? BMI of 65.1 as of 08/23/2023.? ? While in the office today, the patient reports the Gel injection gave her about two months of relief. She reports the right knee is worse than the left knee. She also reports frequent falls. She states she has not been seen by physical therapy in a year and does not feel the exercises were helping her. ? ? Patient presents in the office today in a wheelchair. ? Patient is currently followed by Rheumatology. ? Patient has a history of left foot surgery on 06/11/2023.? Patient has a medical history of fibromyalgia.? ? The patient was offered a cortisone injection in the bilateral knees with 80 mg of DepoMedrol. The patient was explained the risks, benefits, and alternatives to receiving this injection. After receiving consent for the injection, the patient had the procedure done while in the office today. The patient tolerated the procedure well with no complications.? ? ? We discussed a referral to weight management, but the patient is not ready to proceed with this. An order was placed for physical therapy to work on ROM and strengthening. Follow-up will be in three months for repeat cortisone injections in the bilateral knees, or sooner if needed. ? ? Of note: Currently, the patient is not a surgical candidate, with a BMI of 65.1 as of 08/23/2023.? ? X-rays of the bilateral knees, obtained at [facility] on 02/23/2023, revealed: end- stage medial compartment osteoarthritis with varus alignment and deformity. ? Orders: Orders PT Evaluation and Treatment Today M17.0 - Bilateral primary osteoarthritis of knee Patient Instructions: Scribed by Anabell Knox director biomedical engineering, for Liset Cullen PA-C on 08/23/2023 at 10:10 am, EST.? Coding Level of Care Code Est Pt Level 3 (18218) Diagnoses Osteoarthritis of right knee M17.11 Osteoarthritis of left knee M17.12 Morbid obesity E66.01 CPT Codes Coding - 94946 Large joint: 11388 - Large joint ([id number])
[2023-08-23 10:06] VITALS: BMI 65.1
== END 2023-08-23 10:45 | disposition home or self-care (01) ==
PROVIDERS: PCP Family Medicine; Visit Provider Physician Assistant
DX: M17.0 Bilateral primary osteoarthritis of knee (principal); E66.01 Morbid (severe) obesity due to excess calories
CPT/HCPCS: 20610; 99213

== ENCOUNTER → 2023-08-23 09:57 | Outpatient (BNVA) | payer OTHER, SELFPAY | PROVIDERS: PCP Family Medicine; Visit Provider Physician Assistant | DX: M17.0 Bilateral primary osteoarthritis of knee (principal); E66.01 Morbid (severe) obesity due to excess calories; Z68.44 Body mass index [BMI] 60.0-69.9, adult | CPT/HCPCS: 20610; 99212; J1010 ==

== ENCOUNTER 2024-05-08 10:25 | Outpatient (AMB) | payer OTHER, SELFPAY ==
[2024-05-08 10:38] VITALS: BP 134/63; PULSE 66; O2SAT 99; BMI 54.9
--- NOTE | 2024-05-08 10:38 | A.OFFVIS_ITS ---
Vital Signs 05/08/24 10:38 Height 5 ft 5 in Weight 330 lb BMI 54.9 BP 134/63 Blood Pressure Location Rt brachial Position Sitting Pulse 66 Pulse Source Pulse Oximeter Pulse Oximetry (%) 99 Oxygen Delivery Method Room Air Intake Visit Reasons: Back and Neck Pain Allergies iodine Allergy (Unknown, Verified 05/08/24 10:38) unknown oxycodone [Percocet] Allergy (Unknown, Verified 05/08/24 10:38) unknown penicillin V Allergy (Unknown, Verified 05/08/24 10:38) unknown pregabalin Allergy (Unknown, Verified 05/08/24 10:38) unknown risperidone [Risperdal] Allergy (Unknown, Verified 05/08/24 10:38) unknown Contrast dye Allergy (Unknown, Uncoded 05/08/24 10:38) unknown HPI Comments Details: Josi is back in my office with complains on lower back pain and neck pain. She was about to be scheduled for therapeutic medial branch block L3, L4, dorsal ramus L5 bilateral in July of 2023. Unfortunately we were not able to reach the patient to schedule the procedure. She states now that she did not have transportation to get in here that is why she was not answering her telephone. (? !) I will schedule her again for procedure as above. She also asks me for some prescriptions to help her pain. We discussed very carefully chronic opioid program. I do not think that she is a good candidate for the program because of her mobility limitations and transportation needs. She asked multiple appropriate questions. I asked those questions to her to her satisfaction. I believe she understood why opioids is a poor options for her. I offered her OTC diclofenac and she stated that she can not afford it. I will try to prescribe it for the patient however her insurance company might not cover the prescription. I also will prescribe her baclofen 10 mg t.i.d.. I explained to her about possible drowsiness and sleepiness after intake of this medication. She was asking multiple appropriate questions about this medicine. I explained all the side effects of the baclofen and most importantly dizziness and drowsiness on this medication. I also told her that it may help her to sleep at night. Prior: Excellent results of L3 L4-5 therapeutic MBB on 02/17/2021. She requests me to repeat the therapeutic medial branch blocks however the original medial branch block was very difficult due to significant distance between the patient's skin in the target. I was using longus needles and they were all the way up to the hub to the targets. I thing that my ability to perform radiofrequency ablation is very limited in this patient's case. I thing the only option we have here is to perform a trial of SPRINT PNS. This procedure will be done with 1 week interval 1st on the left and then on the right. After that she will were the stimulating device for 8 weeks and we will probably be able to reduce her pain very low levels for the next 6 months to a year. Prior: Josi is very pleasant 44 y/o presents with chronic worsening lower back pain. She is severely morbidly obese and my ability to reach her medial branches with radiofrequency cannulas could be compromise by body mass. In the past she has trialed Physical therapy, performs daily exercises, and trialed medications without relief. She does some pain relief with aquatic exercise at the gym however it is only temporary. Her past surgical history significant for incidental meningioma discovery with following meningioma excision from the brain. She reports some memory loss after brain surgery. She reported that she was denied bariatric surgery because of her memory loss. 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 Father No problems noted. 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 Review of Systems Const All systems reviewed & are unremarkable except as noted in HPI and below Physical Exam Vital Signs: Last Vital Signs Pulse 66 05/08/24 10:38 BP 134/63 05/08/24 10:38 Pulse Ox 99 05/08/24 10:38 Oxygen Delivery Method Room Air 05/08/24 10:38 BMI result Body Mass Index 54.9 Const Nutritional Appearance: obese morbidly obese Eyes General: appearance normal, both eyes and all related structures Pupils: Equal, round and reactive pupils present EOM: EOMs intact bilaterally Neck Neck: Yes full ROM Chest Chest palpation & inspection: normal inspection of the chest Resp Effort & Inspection: normal respiratory effort, able to speak in complete sentences, normal respiratory pattern, no audible wheezes and no cough Cardio Jugular venous distension: no JVD GI Inspection: Yes normal to inspection Back/Spine/Pelvis Other: TTP 18/18 TP. Full ROM of lumbar spine, hips, knees, and ankles.. EXTREMITIES: no clubbing, cyanosis, or edema. NEUROLOGIC: L2-S1 b/l strength 5/5. Sensation intact to light touch in L2-S1 b/l. DTR's 2+ patella/achilles b/l. Reports chronic use of walker for ambulation even with no regard of recent bunion surgery. Reports bilateral weakness of the lower extremity. Neuro Cranial nerves: Yes Equal, round and reactive pupils present Gait exam (Neuro): Normal gait present Motor exam (neuro): 5/5 motor strength present throughout Extrem General: No pedal edema Psych Speech and movement: Normal speech and movement present Affect: normal affect Attitude: cooperative Thought process: Normal thought process present Thought content: Normal thought content present Insight: Good insight present (Psych) Judgement: Good judgement present (Psych) Results Reviewed Results Reviewed: MRI lumbar spine 2014.: There is a mild rotator levoscoliosis with affects at L4. Intervertebral disc height and signal are normal. The vertebral bodies have normal contour. Marrow signal is homogeneous. The visualized retroperitoneal structures are unremarkable. Conus at L2. Spinal levels L1-L2 mild facet arthropathy and ligamentum flavum hypertrophy. Posterior disc contour is normal no central stenosis or foraminal narrowing. L2-L3: Mild bilateral facet arthropathy and ligamentum flavum hypertrophy disc contour is normal no central stenosis or foraminal narrowing. L3-L4 mild bilateral facet arthropathy and ligamentum flavum hypertrophy. Broad-based posterior disc bulge the neural foramina patent there is no central stenosis. L4-5 mild bilateral facet arthropathy and ligamentum flavum hypertrophy which is more prominent on the left. Posterior disc contour is normal there is no central stenosis or foraminal narrowing. L5-S1 there is [id number] bilateral facet arthropathy there is small central disc protrusion with an annular fissure without significant distortion of the thecal sac or traversing nerve root encroachment. There are small bilateral foraminal disc protrusions more prominent on the left. There may be mild encroachment of exiting left L5 nerve root from facet osteophytes no traversing nerve root encroachment is seen. Assessment & Plan Assessment & Plan (1) Morbid obesity: Code(s): E66.01 - Morbid (severe) obesity due to excess calories Category: Medical (2) Fibromyalgia: Code(s): M79.7 - Fibromyalgia Category: Medical (3) Spondylosis of lumbosacral spine without myelopathy: Code(s): M47.817 - Spondylosis without myelopathy or radiculopathy, lumbosacral region Category: Medical Plan Patient presents to the office for follow up chronic back pain, fibromyalgia, chronic neck pain, chronic knee pain. She is severely morbidly obese. Her BMI is 54.9. Her weight is 330 lb. Good prior results of the therapeutic MBB, I performed L3, L4, dorsal ramus L5 in 2021 which resulted in prolonged and profound pain relief for this patient. I will schedule her for this procedure again. Very carefully risks and benefits were explained to the patient. I will prescribe her diclofenac topical, it maybe OTC medication but she can not afford it purchasing in the pharmacy. So I will prescribe it to her. If her insurance company will cover it she will have pain medication necessary for her. I also will prescribe her baclofen 10 mg t.i.d.. The risks and benefits as well as side effects of this medications were carefully explained to the patient. Medications: New baclofen 10 mg PO TID 30 days 90 tabs 6RF Refilled diclofenac sodium 1% 2 grams topical BID 100 grams 2RF Discontinued tizanidine Discontinued Reason: Doctor's Order 6 mg PO BID 30 days PRN 60 caps 3RF for muscle spasm Patient Instructions: I here by testify that I spent 42 minutes in conversation with this patient as well as planning her care and organizing this note. Coding Level of Care Code Est Pt Level 5 (34545) Diagnoses Morbid obesity E66.01 Fibromyalgia M79.7 Spondylosis of lumbosacral spine without myelopathy M47.817
== END 2024-05-08 11:13 | disposition home or self-care (01) ==
LOC: HO.PMC 10:26
PROVIDERS: PCP Family Medicine; Visit Provider Anesthesiology
DX: M47.817 Spondylosis without myelopathy or radiculopathy, lumbosacral region (principal); M79.7 Fibromyalgia; E66.01 Morbid (severe) obesity due to excess calories
CPT/HCPCS: 99215

== ENCOUNTER → 2024-05-08 10:25 | Outpatient (BNVA) | payer OTHER, SELFPAY | PROVIDERS: PCP Family Medicine; Visit Provider Anesthesiology | DX: M79.7 Fibromyalgia (principal); M47.817 Spondylosis without myelopathy or radiculopathy, lumbosacral region; E66.01 Morbid (severe) obesity due to excess calories; Z68.43 Body mass index [BMI] 50.0-59.9, adult | CPT/HCPCS: 99212 ==

== ENCOUNTER 2024-07-08 06:33 | Outpatient (REF) | payer OTHER, SELFPAY ==
--- NOTE | ~2024-07-08 | FL_ITS ---
EXAMINATION: FL GUIDANCE ONLY HISTORY: M47.817 - Spondylosis without myelopathy or radiculopathy, lumbosacral... COMPARISON: None available. TECHNIQUE: Fluoroscopy time: 0.5 minutes. Cumulative Dose: 18.1 mGy. DAP: 0.315 mGym2 Images: 5. FINDINGS: Fluoroscopic spot films of the lumbar spine in the AP projection demonstrate needles and contrast material in the regions of the bilateral L3-4, L4-5, and L5-S1 facet joints. FL/FL guidance in treatment room IMPRESSION: Fluoroscopy during procedure. Please see procedure report for additional information. Electronically signed by: Mark Cano MD 07/08/2024 12:28 PM EDT
--- OUTSIDE RECORDS SUMMARY | 2024-07-08 06:37 | XMS_ITS | Data Portability ---
Author Organization [facility], [facility] Address [address] [place] [address] Care Team Providers Care Tree Pruner Name Role Phone DAMION MONTALVO Primary Care Provider [phone] Assessment Encounter Date Assessment Date Assessment LastModified by Organization Details LastModified Time 10/09/2023 10/09/2023 Chief Complaint: Bilateral knee advanced osteoarthritis, morbid obesity HPI: The patient is a 48-year-old female here today regarding bilateral knee pain. She has a long history of knee pain. She was recently seen just 3 months ago by one of our physician assistants. She is undergone knee cortisone injections in the past. No new injury or trauma. She complains of pain rather diffusely to both knees. Past medical, surgical, family and social history; Medications, Allergies and 12-point review of systems have been reviewed, updated and charted. Physical Examination: Height and weight as listed in chart. Constitutional: Patient pleasant, well appearing and in NAD. Mental status: Patient is alert and oriented to person, place and time. No short-term memory deficits. Psychiatric: Mood and affect are appropriate. Head: Normocephalic and atraumatic. Exterior inspection of the ears and nose was unremarkable. Hearing grossly intact. Eyes: Sclera are not blue. instructor nurse II-XII are grossly intact. Full extraocular motion. Neck: Supple with age-appropriate ROM. No tracheal deviation. No obvious JVD. Respiratory: Non-labored breathing. Symmetric excursion. No audible wheezing or crackles. Skin: No rashes, lesions, wounds to the lower extremities. Normal turgor and coloration. Musculoskeletal: On examination of the bilateral knees, there are no discernible effusions, erythema or ecchymosis. Range of motion from 0-120? ? ? bilaterally. Her knees are grossly stable ligamentously. Positive medial and lateral joint line tenderness. Extensor mechanisms intact. Significant soft tissue envelope in the setting of morbid obesity. Procedure: Injection of Steroid and Anesthetic, Knee Joint, right All reasonable risks and benefits of injection were discussed. Risks include bleeding, infection, non-relief of symptoms, recurrence of symptoms, allergic reaction, scarring, fat atrophy, and hyperglycemia. After obtaining verbal consent, the right anterolateral knee was prepped in sterile fashion using an alcohol swab. The skin was anesthetized with ethyl chloride spray, wiped again with alcohol, and an intraarticular injection of 1cc of Kenalog 40 and 4cc? s of Lidocaine 1% was performed using a 22-gauge needle into the anterolateral aspect of the knee. The medication flowed freely into the joint and the patient tolerated this procedure well. The patient was instructed to avoid strenuous activity following the injection for approximately 24 to 48 hours, and then a gradual return to normal activities is allowed. Procedure: Injection of Steroid and Anesthetic, Knee Joint, left All reasonable risks and benefits of injection were discussed. Risks include bleeding, infection, non-relief of symptoms, recurrence of symptoms, allergic reaction, scarring, fat atrophy, and hyperglycemia. After obtaining verbal consent, the left anterolateral knee was prepped in sterile fashion using an alcohol swab. The skin was anesthetized with ethyl chloride spray, wiped again with alcohol, and an intraarticular injection of 1cc of Kenalog 40 and 4cc? s of Lidocaine 1% was performed using a 22-gauge needle into the anterolateral aspect of the knee. The medication flowed freely into the joint and the patient tolerated this procedure well. The patient was instructed to avoid strenuous activity following the injection for approximately 24 to 48 hours, and then a gradual return to normal activities is allowed. Impression and Plan: 48-year-old morbidly obese female with a chronic history of bilateral knee pain in the setting of advanced osteoarthritis. From a surgical standpoint, her best option is knee replacement surgery. Unfortunately, her weight/BMI at this time likely precludes her from this type of surgery. I did recommend that she focus on diet and weight loss and recommended that she speak with her PCP in these regards. To help with her symptoms, I did perform bilateral knee cortisone injections today that she tolerated very well. I will have her follow up with her total joints team in the future. All questions and concerns addressed. Today's visit involved examining the patient, reviewing the history, reviewing the radiographic studies, counseling the patient regarding treatment options, and the administrative tasks including placing orders, preparing patient information and home handouts and preparing the visit note. This note was generated with [facility] speech recognition director of community services dictation software. Please excuse any errors that may have been overlooked during review of this note. Sometimes, these errors may affect the content or meaning of a given sentence. Please call for corrections. [email or web address] Not available 10/09/2023 10:46:33 04/22/2024 04/22/2024 Chief Complaint: Bilateral knee advanced osteoarthritis, morbid obesity, recent symptom exacerbation HPI: The patient is a 48-year-old female here today regarding bilateral knee pain. She has a long history of knee pain. She has responded fairly to injection treatment past but has recently exacerbated her pain continues. No new injury or trauma. She complains of pain rather diffusely to both knees. She comes in today in wheelchair. Past medical, surgical, family and social history; Medications, Allergies and 12-point review of systems have been reviewed, updated and charted. Physical Examination: Height and weight as listed in chart. Constitutional: Patient pleasant, well appearing and in NAD. Mental status: Patient is alert and oriented to person, place and time. No short-term memory deficits. Psychiatric: Mood and affect are appropriate. Head: Normocephalic and atraumatic. Exterior inspection of the ears and nose was unremarkable. Hearing grossly intact. Eyes: Sclera are not blue. instructor nurse II-XII are grossly intact. Full extraocular motion. Neck: Supple with age-appropriate ROM. No tracheal deviation. No obvious JVD. Respiratory: Non-labored breathing. Symmetric excursion. No audible wheezing or crackles. Skin: No rashes, lesions, wounds to the lower extremities. Normal turgor and coloration. Musculoskeletal: On examination of the bilateral knees, there are no discernible effusions, erythema or ecchymosis. Range of motion from 0-120? ? ? bilaterally. Her knees are grossly stable ligamentously. Positive medial and lateral joint line tenderness. Extensor mechanisms intact. Significant soft tissue envelope in the setting of morbid obesity. Procedure: Injection of Steroid and Anesthetic, Knee Joint, right All reasonable risks and benefits of injection were discussed. Risks include bleeding, infection, non-relief of symptoms, recurrence of symptoms, allergic reaction, scarring, fat atrophy, and hyperglycemia. After obtaining verbal consent, the right anterolateral knee was prepped in sterile fashion using an alcohol swab. The skin was anesthetized with ethyl chloride spray, wiped again with alcohol, and an intraarticular injection of 1cc of Kenalog 40 and 4cc? s of Lidocaine 1% was performed using a 22-gauge needle into the anterolateral aspect of the knee. The medication flowed freely into the joint and the patient tolerated this procedure well. The patient was instructed to avoid strenuous activity following the injection for approximately 24 to 48 hours, and then a gradual return to normal activities is allowed. Procedure: Injection of Steroid and Anesthetic, Knee Joint, left All reasonable risks and benefits of injection were discussed. Risks include bleeding, infection, non-relief of symptoms, recurrence of symptoms, allergic reaction, scarring, fat atrophy, and hyperglycemia. After obtaining verbal consent, the left anterolateral knee was prepped in sterile fashion using an alcohol swab. The skin was anesthetized with ethyl chloride spray, wiped again with alcohol, and an intraarticular injection of 1cc of Kenalog 40 and 4cc? s of Lidocaine 1% was performed using a 22-gauge needle into the anterolateral aspect of the knee. The medication flowed freely into the joint and the patient tolerated this procedure well. The patient was instructed to avoid strenuous activity following the injection for approximately 24 to 48 hours, and then a gradual return to normal activities is allowed. Impression and Plan: 48-year-old morbidly obese female with a chronic history of bilateral knee pain in the setting of advanced osteoarthritis. From a surgical standpoint, her best option is knee replacement surgery. Unfortunately, her weight/BMI at this time likely precludes her from this type of surgery. I did recommend that she focus on diet and weight loss and recommended that she speak with her PCP in these regards. To help with her symptoms, I did perform bilateral knee cortisone injections today that she tolerated very well. I will have her follow up with the total joints team in the future. All questions and concerns addressed. Today's visit involved examining the patient, reviewing the history, reviewing the radiographic studies, counseling the patient regarding treatment options, and the administrative tasks including placing orders, preparing patient information and home handouts and preparing the visit note. This note was generated with [facility] speech recognition director of community services dictation software. Please excuse any errors that may have been overlooked during review of this note. Sometimes, these errors may affect the content or meaning of a given sentence. Please call for corrections. [email or web address] Not available 04/22/2024 14:49:50 Plan of Treatment Reminders Order Date Submit Date Provider Last Modified By Organization Details Last Modified Time Details Appointments None recorded. Lab None recorded. Referral wound care referral - LEFT FOOT PARTIAL WOUND DEHISSANC E-- TO BE SEEN WITHIN 1-[address] EDWARD PLEASE 2023 024 [email or web address] [facility], [address] [place] [address], [place], [address], 11:37:46 Procedures None recorded. Surgeries None recorded. Imaging XR, foot, 3 or more view - 317 right foot 3v -pt in [facility] 2024 025 [facility], [address], [address], [place], [address], 5 12:00:35 XR, cervical spine, 1 view - room 221 lateral [facility], [address], [address], [place], [address], 4 11:55:02 XR, shoulder, 2 or more view - room 221 right shoulder/ lateral cervical 2023 024 [facility], [address], [address], [place], [address], 4 11:55:02 Medication Orders None recorded. Patient TargetsNo targets recorded. Patient InstructionsNo instructions recorded. Reason for Referral LEFT FOOT PARTIAL WOUND DEHI SSANCE-- TO BE SEEN WITHIN 1-[address] EDWARD PLEASE Referring Physician: Jazmín Hendrix, Orthopedic Surgery, Encounter Date: 08/30/2023 Results Created Date Observation Date Name Description Value Unit Range Abnormal Flag Note LastModifiedBy Organization Detail LastModifiedTime 07/25/19 24 07/25/2023 XR, cervi duy spine , 1 view [email or web address] ?Encry pted=s hAaTro YD8dLq bEUv6g %2BXZw aYqtaq 0bqfl% 2Fg9IQ a4ajBk vP9nXo QUaueC m3YtLR FvZlgJ JJ8mAn HZtai3 5v8593 AC0Kub n6MUqf eUC8mr 84%3D INTERFACE [facility] [address], [place], [address], 07/25/2023 12:46:39 07/25/19 24 07/25/2023 XR, shoul cely, 2 or more view [email or web address] ?Encry pted=s hAaTro YD8dLq bEUv6g %2BXZw aYqtaq 0bqfl% 2Fg9IQ a4ajBk vP9nXo QUaueC m3YtLR FvZlgJ JJ8mAn HZtai3 4v2375 AC0Kub n6MUqD eUC8mr 84%3D INTERFACE [facility] [address], [place], [address], 07/25/2023 12:48:42 07/25/19 24 07/25/2023 XR, shannon cely, 2 or more view [email or web address] ?Encry pted=s hAaTro YD8dLq bEUv6g %2BXZw aYqtaq 0bqfl% 2Fg9IQ a4ajBk vP9nXo QUaueC m3YtLR FvZlgJ JJ8mAn HZtai3 9v7427 AC0Kub n6MUqD eUC8mr 84%3D INTERFACE [facility] [address], [place], [address], 07/25/2023 12:48:44 10/13/19 24 08/18/2021 imagi ng/di agnos tic resul t No observ ation record ed. [email or web address] Not Available 09/14 03:59:45 10/13/19 24 03/05/2023 imagi ng/di agnos tic resul t No observ ation record ed. [email or web address] Not Available 09/14 04:00:01 04/25/19 25 04/24/2024 XR, foot, 3 or more view [email or web address] ?Encry pted=s hAaTro YD8dLq bEUv6g %2BXZw aYqtaq 0bqfl% 2Fg9IQ a4ajBk vP9nXo QUaueC m3YtLR FvZlgJ JJ8mAn HZtai3 5f5392 AC0KqY nyBWKW kKiQtr MwF INTERFACE [facility] [address], [place], [address], 04/24/2024 09:25:38 04/25/19 25 04/24/2024 XR, foot, 3 or more view [email or web address] ?Encry pted=s hAaTro YD8dLq bEUv6g %2BXZw aYqtaq 0bqfl% 2Fg9IQ a4ajBk vP9nXo QUaueC m3YtLR FvZl JJ8Memphis HZtai3 6l5291 AC0KqY nyBWKW kKiQtr MwF INTERFACE [facility] [address], [place], [address], 04/24/2024 09:25:40 Result Notes None recorded. Problems Name Problem SNOMED Code Status Onset Date Resolution Date Notes Provider Name and Address Organization Details Recorded Time Osteoarthri tis of knee 133535208 Active 2023 Hudson Saavedra PA-C [address], [place], [address], [facility] 4 05:26:26 Pain of right shoulder joint [id number] 9100 Active 2023 Hudson Saavedra PA-C [address], [place], [address], [facility] 4 12:34:32 Neck pain 71900575 Active 2023 Hudson Saavedra PA-C [address], [place], [address], [facility] 4 12:34:46 Impingement syndrome of right shoulder region 3027436226100 02 Active 2023 Hudson Saavedra PA-C [address], [place], [address], [facility] 4 13:02:58 Problem Notes None recorded. Procedures Surgical History Date Name Laterality Status Provider Name and Address Organization Details Recorded Time 5 Knee Kenalog 40 1cc Injection, Bilateral completed Justus Jimenez MD [address], [place], [address], [facility] 04/22/2024 14:50:09 4 Knee Kenalog 40 1cc Injection, Bilateral completed Justus Jimenez MD [address], [place], [address], [facility] 10/09/2023 10:46:46 4 Sports Shoulder completed Hudson Saavedra PA-C [address], [place], [address], [facility] 07/25/2023 13:02:32 4 Knee Kenalog 40 1cc Injection, Bilateral completed Hudson Saaevdra PA-C [address], [place], [address], [facility] 06/27/2023 05:26:07 Imaging Results None recorded. Procedure Notes None recorded. Medical Equipment None Reported. Allergies Allergen ID Allergen Name Allergen Category Reaction Reaction Severity Criticality Documentation Date Start Date Code Code System Note Provider Name and Address Organization Details Recorded Time 71920 Lyrica medicatio n Not available Not available Not available 04/16/20232011 35264 1 RxNorm Aller gyRea ction : 'Skin React ion, Asthm a/Viviana rt of Breat h'; Not Available [facility] 4 13:40:09 67457 acetamino phen / oxycodone medicatio n Not available Not available Not available 04/16/20232011 38328 3 RxNorm Aller gyRea ction : 'Skin React ion, Asthm a/Viviana rt of Breat h'; Not Available [facility] 4 13:40:09 69808 Iodinated contrast media (substanc e) medicatio n Not available Not available Not available 04/16/20232019 45189 2004 SNOMED Aller gyNam e: 'Cont rast Dye'; Not Available [facility] 4 13:40:09 87300 iodine medicatio n Not available Not available Not available 04/16/20232019 5933 RxNorm Not Available [facility] 4 13:40:09 01930 Product containin g penicilli n (product) medicatio n Not available Not available Not available 04/16/20232019 03410 8001 SNOMED Not Available [facility] 4 13:40:09 Medications Name Sig Start Date Stop Date Status Note LastModified by Organization Details LastModified Time losartan 50 mg tablet TAKE 1 TABLET BY MOUTH EVERY DAY AT NOON active Not Available Not Available No t Available nystatin 100,000 unit/mL oral suspension TAKE 5 ML BY MOUTH 4 TIMES A DAY,X7 DAYS, SWISH / RETAIN IN MOUTH LONG POSSIBLE active Not Available Not Available No t Available clonidine HCl 0.1 mg tablet TAKE 1 TABLET BY MOUTH ONCE A DAY NEEDED FOR PANIC ATTACK. active Not Available Not Available No t Available venlafaxine ER 75 mg capsule,ext ended release 24 hr TAKE 1 CAPSULE BY MOUTH EVERY DAY (WITH 150MG) active Not Available Not Available No t Available Dilaudid 2 mg tablet Take 1 tablet every 4 hours by oral route for 3 days. 2023 active Not Available Not Available Not Avnano montanez loperamide 2 mg capsule TAKE 1 CAPSULE BY MOUTH EVERY 4 HOURS NEEDED FOR LOOSE STOOL active Not Available Not Available No t Available cetirizine 10 mg tablet TAKE 1 TABLET BY MOUTH EVERY DAY active Not Available Not Available No t Available ibuprofen 800 mg tablet TAKE 1 TABLET BY MOUTH 3 TIMES A DAY NEEDED FOR PAIN FOR 14 DAYS active Not Available Not Available No t Available tizanidine 4 mg tablet TAKE 1 TABLET BY MOUTH EVERY 8 HOURS FOR 3 DAYS NEEDED FOR MODERATE PAIN active Not Available Not Available No t Available fluconazole 150 mg tablet TAKE 1 TABLET BY MOUTH NOW AND REPEAT IN 72 HOURS active Not Available Not Available No t Available hydrocodone 5 mg-acetamin ophen 325 mg tablet TAKE 1 TABLET BY MOUTH THREE TIMES A DAY NEEDED FOR PAIN 04/24 completed Not Available Not Available Not Available Nystop 100,000 unit/gram topical powder active Not Available Not Available Not Available senna 8.6 mg tablet TAKE 2 TABLETS BY MOUTH AT BEDTIME NEEDED FOR CONSTIPAT ION active Not Available Not Available No t Available meloxicam 15 mg tablet TAKE 1 TABLET BY MOUTH EVERY DAY AFTER A MEAL active Not Available Not Available No t Available sumatriptan 25 mg tablet TAKE 1 TABLET BY MOUTH DAILY NEEDED FOR MIGRAINE MAY REPEAT AFTER 2 HOURS MAX 2/DAILY active Not Available Not Available No t Available benzoyl peroxide 2.5 % topical gel APPLY TO AFFECTED AREA TWICE A DAY active Not Available Not Available No t Available prednisone 20 mg tablet TAKE 1 TABLET BY MOUTH EVERY DAY FOR 7 DAYS active Not Available Not Available No t Available benzoyl peroxide 10 % topical cleanser APPLY TO AFFECTED AREA TWICE A DAY active Not Available Not Available No t Available olanzapine 5 mg tablet TAKE 1 TABLET BY MOUTH TWICE A DAY IN THE AFTERNOON AND AT BEDTIME active Not Available Not Available No t Available clonazepam 1 mg tablet TAKE 1/2 TABLET BY MOUTH 3 TIMES A DAY active Not Available Not Available No t Available venlafaxine ER 150 mg capsule,ext ended release 24 hr TAKE 1 CAPSULE BY MOUTH EVERY DAY IN THE MORNING active Not Available Not Available No t Available olanzapine 10 mg tablet TAKE 1 TABLET BY MOUTH EVERYDAY AT BEDTIME active Not Available Not Available No t Available metronidazo le 500 mg tablet TAKE 1 TABLET BY MOUTH TWICE A DAY FOR 7 DAYS active Not Available Not Available No t Available acetaminoph en 500 mg tablet 2 TABLET BY MOUTH EVERY 6 HOURS,FOR 30 DAYS, NEEDED FOR PAIN active Not Available Not Available No t Available meloxicam 7.5 mg tablet TAKE 1 TABLET BY MOUTH TWICE A DAY FOR 7 DAYS NEEDED FOR PAIN active Not Available Not Available No t Available hydrocortis one 2.5 % topical cream with perineal applicator APPLY SPARINGLY TO AFFECTED AREA 2 TO 4 TIMES A DAY active Not Available Not Available No t Available clonidine HCl 0.2 mg tablet TAKE 1 TABLET BY MOUTH EVERY NIGHT AT BEDTIME NEEDED FOR INSOMNIA active Not Available Not Available No t Available modafinil 200 mg tablet TAKE 1 TABLET BY MOUTH TWICE A DAY AT 8AM AND NOON active Not Available Not Available No t Available hydrocortis one 2.5 % lotion APPLY TO AFFECTED AREA TWICE A DAY FOR 14 DAYS, 90 DAY SUPPLY active Not Available Not Available No t Available aspirin 325 mg tablet,ruben yed release TAKE 1 TABLET BY MOUTH EVERY DAY FOR 14 DAYS active Not Available Not Available No t Available baclofen 10 mg tablet TAKE 1 TABLET (10 MG) ORALLY 3 TIMES A DAY FOR 30 DAYS active Not Available Not Available No t Available ferrous sulfate 325 mg (65 mg iron) tablet TAKE 1 TABLET BY MOUTH EVERY DAY active Not Available Not Available No t Available prednisone 50 mg tablet TAKE 1 TABLET BY MOUTH EVERY DAY FOR 7 DAYS active Not Available Not Available No t Available lidocaine 5 % topical patch APPLY 2 PATCHES TOPICALLY ONCE DAILY, ON FOR 12 HOURS OFF FOR 12 HOURS FOR PAIN active Not Available Not Available No t Available metronidazo le 0.75 % topical cream APPLY TOPICALLY TWICE DAILY FOR 5 DAYS active Not Available Not Available No t Available ibuprofen 200 mg tablet TAKE 2 TABLETS BY MOUTH EVERY 6 HOURS NEEDED PAIN active Not Available Not Available No t Available betamethaso ne dipropionat e 0.05 % topical cream APPLY A THIN LAYER TO AFFECTED AREA TWICE A DAY NEEDED FOR IRRITATIO N. NO MORE THAN 3WKS IN A ROW active Not Available Not Available No t Available docusate sodium 100 mg capsule TAKE 1 CAPSULE BY MOUTH 2 TIMES A DAY NEEDED FOR CONSTIPAT ION active Not Available Not Available No t Available gabapentin 300 mg capsule 1 CAPSULE BY MOUTH 3 TIMES A DAY, INCREASED DOSE active Not Available Not Available No t Available omeprazole 20 mg capsule,del ayed release TAKE 1 CAPSULE BY MOUTH TWICE A DAY active Not Available Not Available No t Available zolpidem 5 mg tablet TAKE 1 TABLET BY MOUTH AT BEDTIME. ONE TIME ONLY. active Not Available Not Available No t Available gabapentin 100 mg capsule TAKE 1 CAPSULE BY MOUTH 3 TIMES A DAY WITH 300 MG active Not Available Not Available No t Available azelastine 137 mcg (0.1 %) nasal spray USE 1 SPRAY IN EACH NOSTRIL 2 TIMES A DAY VIA HOUSING COORDINATOR DR KUMAR active Not Available Not Available No t Available epinephrine 0.3 mg/0.3 mL injection, auto-inject or INJECT 0.3 MG INTRAMUSC ULAR ONCE,INST R:INJECT NEEDED DIRECTED active Not Available Not Available No t Available topiramate 100 mg tablet TAKE 1 TABLET BY MOUTH EVERYDAY AT BEDTIME active Not Available Not Available No t Available fluticasone propionate 50 mcg/actuati on nasal spray,suspe nsion INSTILL 1 SPRAY INTO BOTH NOSTRILS DAILY active Not Available Not Available No t Available atenolol 50 mg tablet TAKE 1 TABLET BY MOUTH TWICE A DAY active Not Available Not Available No t Available ipratropium bromide 21 mcg (0.03 %) nasal spray USE 1 SPRAY IN EACH NOSTRIL TWICE A DAY NEEDED FOR NASAL CONGESTIO N active Not Available Not Available No t Available levothyroxi ne 112 mcg tablet TAKE 1 TABLET BY MOUTH EVERY DAY active Not Available Not Available No t Available Ventolin HFA 90 mcg/actuati on aerosol inhaler INHALE 2 PUFFS 3 TIMES A DAY NEEDED NEEDED FOR WHEEZE active Not Available Not Available No t Available aripiprazol e 10 mg tablet TAKE 1 TABLET BY MOUTH EVERY DAY active Not Available Not Available No t Available aripiprazol e 15 mg tablet TAKE 1 TABLET BY MOUTH EVERY DAY 07/11 completed Not Available Not Available Not Available aripiprazol e 5 mg tablet TAKE 1 TABLET BY MOUTH EVERY DAY active Not Available Not Available No t Available bupropion HCl XL 300 mg 24 hr tablet, extended release TAKE 1 TABLET BY MOUTH EVERY DAY IN THE MORNING active Not Available Not Available No t Available bupropion HCl XL 150 mg 24 hr tablet, extended release TAKE 1 TABLET BY MOUTH EVERY MORNING (WITH 300MG) active Not Available Not Available No t Available topiramate 50 mg tablet TAKE 1 TABLET BY MOUTH EVERY DAY IN THE MORNING active Not Available Not Available No t Available nitrofurant oin monohydrate /macrocryst als 100 mg capsule TAKE 1 CAPSULE BY MOUTH TWICE A DAY DIRECTED FOR 7 DAYS active Not Available Not Available No t Available darifenacin ER 15 mg tablet,exte nded release 24 hr TAKE 1 TABLET BY MOUTH EVERY DAY IN THE EVENING active Not Available Not Available No t Available Flovent HFA 220 mcg/actuati on aerosol inhaler INHALE 1 PUFF BY MOUTH TWICE A DAY active Not Available Not Available No t Available tizanidine 6 mg capsule TAKE 1 CAPSULE BY MOUTH TWICE DAILY NEEDED FOR MUSCLE SPASM active Not Available Not Available No t Available clotrimazol e Clotrimaz ole 1% Cream 2019 active Statu s: 'Curr ent'; Not Available Not Available Not Available Benadryl Allergy Benadryl Allergy 25MG Capsule 2011 active Statu s: 'Curr ent'; Not Available Not Available Not Available aripiprazol e ARIPipraz ole 10MG Tablet 07/11 completed Statu s: 'Curr ent'; Not Available Not Available Not Available aripiprazol e 2 mg tablet TAKE 1 TABLET BY MOUTH ONCE A DAY AFTER 2 WEEKS, DISCONTIN UE active Not Available Not Available No t Available Symbicort 160 mcg-4.5 mcg/actuati on HFA aerosol inhaler INHALE 2 PUFFS TWICE A DAY active Not Available Not Available No t Available Lubricant Eye Drops 0.5 % drops in a dropperette INSTIL 1 DROP IN BOTH EYES, 2 TIMES A DAY, NEEDED FOR DRY EYES active Not Available Not Available No t Available Artificial Tears (glycerin-p eg) 1 %-0.3 % eye drops INSTILL 1 DROP INTO BOTH EYES FOUR TIMES A DAY CAN USE UP TO 4 TIMES A DAY. active Not Available Not Available No t Available diclofenac 1 % topical gel APPLY THIN FILM TO LEFT CHEST WALL TWICE A DAY NEEDED FOR PAIN active Not Available Not Available No t Available Lubricant Eye (PG-PEG 400) 0.4 %-0.3 % drops INSTIL 1 DROP IN BOTH EYES, 2 TIMES A DAY, NEEDED FOR DRY EYES active Not Available Not Available No t Available Systane Gel 0.4 %-0.3 % eye drops INSTILL 1 DROP INTO BOTH EYES AT BEDTIME active Not Available Not Available No t Available lurasidone 20 mg tablet TAKE 1 TABLET BY MOUTH ONCE A DAY WITH 120 MG TABLET FOR TOTAL DOSE = 140 MG. active Not Available Not Available No t Available Myrbetriq 50 mg tablet,exte nded release TAKE 1 TABLET BY MOUTH EVERY DAY IN THE MORNING active Not Available Not Available No t Available lurasidone 120 mg tablet TAKE 1 TABLET BY MOUTH ONCE A DAY WITH 20 MG TABLET FOR TOTAL DOSE = 140 MG. active Not Available Not Available No t Available Incruse Ellipta 62.5 mcg/actuati on powder for inhalation INHALE 1 PUFF INTO LUNGS EVERY 24 HOURS- 24 HOURS APART active Not Available Not Available No t Available Lidocaine Pain Relief 4 % topical patch APPLY 1 PATCH TO AFFECTED AREA. WEAR FOR 12 HOURS THEN REMOVE FOR 12 HOURS. REPEAT DAILY. active Not Available Not Available No t Available Breztri Aerosphere 160 mcg-9mcg-4. 8mcg/actuat ion HFA aerosol inhaler TAKE 2 PUFFS BY MOUTH TWICE A DAY MAX 4 PUFFS PER DAY active Not Available Not Available No t Available Wegovy 0.5 mg/0.5 mL subcutaneou s pen injector INJECT 1 PEN SUBCUTANE OUSLY ONCE WEEKLY active Not Available Not Available No t Available Digiting COVID-19 Antigen Home Test kit USE DIRECTED active Not Available Not Available No t Available Ozempic 0.25 mg or 0.5 mg (2 mg/3 mL) subcutaneou s pen injector INJECY 0.25MG SUBCUTANE OUSLY ONCE WEEKLY. ROTATE INJECTION SITES. MAX 30 DAY SUPPLY active Not Available Not Available No t Available Zepbound 10 mg/0.5 mL subcutaneou s pen injector INJECT 10 MG SUBCUTANE OUS INJECTION EVERY WEEK ROTATE INJECTION SITES active Not Available Not Available No t Available Zepbound 5 mg/0.5 mL subcutaneou s pen injector INJECT 5 MG SUBCUTANE OUSLY EVERY WEEK,INST R:ROTATE INJECTION SITES active Not Available Not Available No t Available Vitals Date Recorded Body height Body mass index (BMI) Body weight Provider Name and Address Organization Details Last Updated DateTime 04/22/2024 165.1 cm 65.1 kg/m2 092816.62 g ISHA JORDAN [place] - [facility] 04/22/2024 14:37:18 Date Recorded Body height Body mass index (BMI) Body weight Provider Name and Address Organization Details Last Updated DateTime 07/25/2023 165.1 cm 65.1 kg/m2 008686.62 g Hudson Saavedra PA-C [address], [place], [address], [facility] 07/25/2023 12:34:04 Date Recorded Body height Body mass index (BMI) Body weight Body temperature Provider Name and Address Organization Details Last Updated DateTime 08/30/2023 165.1 cm 65.1 kg/m2 581589.62 g 97.2 [degF] ROSCOE ASCENCIO [facility] 08/30/2023 14:20:22 Date Recorded Body height Body mass index (BMI) Body weight Provider Name and Address Organization Details Last Updated DateTime 10/09/2023 165.1 cm 65.1 kg/m2 910065.62 g ISHA JORDAN [facility] 10/09/2023 10:27:32 Social History None recorded. Functional Status None recorded. Mental Status None recorded. Family History Nothing Reported. Medical History Condition Response Allergies/Hayfever N Coronary Artery Disease N Breathing or lung disorders Y Anxiety/Depression N Emphysema N Nerve Disorders Y Thyroid Problems Y COPD N Pacemaker N Kidney/Bladder Problems N Anemia N Vascular Disease N Heart Trouble N Gastrointestinal Disease Y Heart Attack ([place]) N Cholesterol N Diabetes N Autoimmune disease N Bleeding Disorder N Orthotics N Arthritis Y Seizures/Epilepsy Y Blood Clot N AIDS/HIV N Congestive Heart Failure (CHF) N Acid Reflux (GERD) N Cancer N Stroke N Asthma N Circulation Problems N Peripheral Vascular Disease N Sleep Apnea Y Hepatitis N Heart Disease N Rheumatoid Arthritis N Arrhythmia N Pulmonary Embolism N Headaches Y Fibromyalgia N Hypertension Y Osteoporosis N Gynecological HistoryNo gynecological history recorded. Obstetrics History GPAL:G 0 P 0 0 0 0 Past Encounters Encounter ID Performer Location Encounter Start Date Encounter Closed Date Diagnosis/Indication Diagnosis SNOMED-CT Code Diagnosis ICD10 Code Diagnosis Note [id number] MD Ryan Mahoney [address] [place] [address] 05/03/2023 10:04:53 05/23/2023 10:02:05 Foot pain 73453827 M79.672 Pain assoc iated with internal prosthetic device 145335581 T84.84XD [id number] PIOT[facility] [address] [place] [address] 06/26/2023 10:11:28 07/18/2023 12:24:58 Orthopedic hardware in situ 661880419 Z97.8 [id number] Hudson Saavedra PA-C [facility] [address] [place] [address] 06/27/2023 08:44:07 07/11/2023 09:08:48 Osteoarthritis of knee 619596823 M17.9 [id number] Jazmín Hendrix PA-C [facility] [address] [place] [address] 07/12/2023 13:51:07 08/03/2023 13:48:26 Pain in left foot 3854920960 63691 M79.425 [id number] Vaibhav Edward MD [facility] [address] [place] [address] 07/24/2023 10:44:52 08/23/2023 14:30:59 Postoperative care 560119955 Z48.89 [id number] Hudson Saavedra PA-C [facility] [address] [place] [address] 07/25/2023 11:53:33 08/15/2023 11:55:01 Pain of right shoulder joint 2188451578 3618142 M25.511 Neck pain 77371946 M54.2 Impingemen t syndrome of right shoulder region 5047480150 02484 M75.41 [id number] Jazmín Hendrix PA-C [facility] [address] [place] [address] 08/30/2023 13:50:27 09/18/2023 11:37:46 Postoperative wound infection 89346401 T81.40XD [id number] [facility] [address] [address] [place] [address] 10/09/2023 10:00:47 11/06/2023 12:19:05 Osteoarthritis of left knee joint 1853959275 91437 M17.12 Osteoarthr itis of right knee joint 5937479495 20768 M17.11 [id number] MD ELENA Mendoza [address] [place] [address] 04/22/2024 14:30:32 05/08/2024 10:16:43 Osteoarthritis of right knee joint 4934564222 33680 M17.11 Osteoarthr itis of left knee joint 7569009804 63875 M17.12 [id number] [facility] [address] [place] [address] 04/24/2024 09:07:08 05/08/2024 12:00:34 Pain in right foot 4062125587 88207 M79.671 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 1731178751 523385 M21.621 Health Concerns Section Related Observation LastModified by Organization Detai ls LastModified Time None Recorded Concern Status LastModified by Organization Details LastModified Time None Recorded Advance Directives Directive None Recorded Payers Encounter Date Sequence Insurance Name Policy Number Policy [place] Covered Member ID Hills Member ID Guarantor Name 07/25/2023 1 [facility] (MEDICAID HMO) [id number] Josi Moody [id number] Josi Moody 08/30/2023 1 [facility] (MEDICAID HMO) [id number] Josi Moody [id number] Josi Moody 10/09/2023 1 [facility] [id number] Josi Moody [id number] Josi Moody 04/22/2024 1 [facility] [id number] Josi Moody [id number] Josi Moody 04/24/2024 1 [facility] [id number] Josi Moody [id number] Josi Moody Notes Date Note Type Note Provider Name and Address Organization Details Recorded Time 07/25/2023 text/html I am seeing the patient today under the supervision of Dr. rFied who was available but who did not see the patient. INTERVAL HISTORY: Josi is back today for evaluation of her right shoulder. Prior history outlined in my previous office visit which has documented previous MRI scan from [facility] which showed some tendinopathy and a partial-thickness rotator cuff tear. She additionally has complaints of both knees she has advanced arthritis but an elevated BMI of 65 I have recommended that she see a research associate and talk to her primary care doctor as this is a can be a critical component to her long-term management of her chronic conditions. PAST MEDICAL/SURGICAL HISTORY Current medications per intake sheet. PHYSICAL FINDINGS The patient is well appearing, in no apparent distress, alert and oriented to person, place and time. Gait is symmetric. No significant swelling, warmth or erythema about either shoulder. Right shoulder exam findings note active assisted forward elevation to 150 degrees, external rotation 35 degrees, internal in his back pocket, mild bursal crepitance, AC joint is nontender,, positive impingement arc rotator cuff strength 4/5. Cervical Exam demonstrates limited ROM without radicular symptoms. Peripheral, vascular, lymphatic examination, skin, neurologic coordination, reflexes, sensation are within normal limits. X-ray findings: 4 views ordered and independently reviewed previously at [facility] of the 3 views of the right shoulder findings include well-preserved glenohumeral joint, type II acromion, mild AC joint arthritis. Lateral C-spine x-ray shows multilevel early degenerative changes. ASSESSMENT: #1. Right shoulder impingement with partial-thickness rotator cuff tear #2. Bilateral knee OA #3. Morbid obesity PLAN: Treatment options discussed ultimately decision was made to continue conservative treatment. She is not a good candidate for surgical options, I gave her some home physical therapy exercises to address some of her shoulder complaints offered her subacromial space injection today. [facility] speech recognition director of community services software was used to create portions of this document. An attempt at proofreading has been made to minimize errors. Please call for corrections Hudson Saavedra PA-C [address], [place], [address], [facility] - [facility] 07/25/2023 13:03:33 08/30/2023 text/html I am seeing this patient under the supervision of Dr. Edward, who was available but who did not see the patient.HPI: Patient is a 47-year-old female presenting today about 3 months status post left first metatarsal removal of hardware. Date of surgery 06/11/2023. She had some issues with superficial dehiscence of her incision. Reports she has not seen wound care yet. Reports she still has not been able to get into a regular shoe. Denies any interval trauma. Denies warmth or purulent drainage from the incision. Denies any fevers, chills, or paresthesias. Mentions that her PCP told her they feel that her great toe is a bit dorsiflexed compared to the contralateral side, patient is inquiring about this today.PFMSH, Meds and ROS reviewed, updated and signed by me, and is located in the patient's chart.PHYSICAL EXAMINATION: The patient is well appearing and in no apparent distress. Alert and oriented x 3. Examination of her left foot reveals some residual swelling about the forefoot. At the distal aspect of the incision there is some peeling of the superficial tissue of the skin, however skin is closed and intact, no open wounds. No evidence of erythema or warmth or drainage or other signs of infection. Good ankle range of motion. Good digital range of motion including the hallux MTP joint. Calf soft, nontender. Sensation intact to light touch in the left lower extremity.IMPRESSION: 3 months status post surgery as above, superficial dehiscence and residual swellingPLAN: Discussed the findings and situation with the patient today. Patient was reassured that there is no concern for infection at this time. We reached out to wound care to have her appointment moved sooner as her appointment is in October which is very far out. We discussed that the dorsiflexed position of the great toe may be related to the residual swelling that she has in the forefoot. We discussed the importance of elevation and mild compression socks. She would like to follow-up with Dr. Edward to further discuss this. Follow-up was arranged. She will monitor the incision and if anything worsens or changes she will call the office in the meantime. Call with questions or concerns. Patient agrees with this plan. All questions were answered.Speech recognition director of community services software was used to create portions of this document. An attempt at proofreading has been made to minimize errors. Please call for corrections. Jazmín Hendrix PA-C [address], [place], [address], [facility] - [facility] 08/30/2023 15:19:13 04/24/2024 text/html I am seeing this patient under the supervision of Dr. Michel, who was available but who did not see the patient. Chief Complaint: Right foot pain HPI: Patient is a pleasant 48-year-old female who presents in office today due to right foot pain. Patient has previously been seen and treated in the office for the contralateral side. She states today she has been having right foot pain for a while now that bothers her all day every day. She states she does walk around the home a little but she is in a wheelchair in office today she states she has been doing foot baths, massages, Tylenol and ibuprofen however then later in the appointment states she is currently on prednisone for respiratory issue as well as gabapentin for other pain syndromes and meloxicam prescribed by another provider. 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 PFMSH, Meds and ROS reviewed, updated and signed by me, and is located in the patient's chart.PHYSICAL EXAMINATION: The patient is well appearing and in no apparent distress. Alert and oriented x 3. On seated examination patient has no observable edema erythema or ecchymosis. She is not significantly warm to palpation when compared to elsewhere throughout the foot. Patient has limited digital range of motion due to pain today she is significantly tender to palpation along the fifth MTP joint examination is difficult to be completed as patient is not significantly compliant with commands in the office that she states that it is too painful. Ankle range of motion appears intact.Sensory exam- reports sensation intact to light touch SP/DP/S/S/T distributions Palpable DP/PT pulses, foot warm and well perfused, appropriate capillary refill Calf is soft, supple, non-tender RADIOLOGY: X-rays were ordered, obtained, and reviewed today in our office. 3 views nonweightbearing right foot show no acute signs of fractures or dislocation patient has mild hallux valgus deformity question of bunionette deformity on oblique view. This is not appreciated on AP view in office today. 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 IMPRESSION: Fifth MTPJ joint line pain question of bunionette. PLAN: Discussed the findings and situation with the patient today. Patient was given a prescription for small toe spacer and Budin splint to trial to address some of the pain she is having. We discussed that at this time she is currently on a lot of the medications I would otherwise prescribe for her. We did discuss that we could potentially increase her nighttime gabapentin dose to 600 mg in the evening. She is currently on 300 mg twice a day. As prescribed by another provider. Patient was somewhat disgruntled about having to go get these orthotics was also addressed to me that she was unhappy that she was seeing versus another provider's office. Discussed with the patient I am happy to continue following her and we will see follow-up again. The patient is ambulatory, but has weakness and/or instability of their extremity which requires stabilization from this semi-rigid/rigid orthosis to improve their function. Verbal and written instructions for the use and application of this item were given. Patient was instructed that should the brace result in increased pain, decreased sensation, increased swelling or an overall worsening of their medical condition, to please contact our office immediately. BETSY TALLEY-Marie [address], [place], [address], [facility] 04/24/2024 11:17:13 OBGyn Episode No OBEpisode recorded.
== END 2024-07-08 06:34 | disposition home or self-care (01) ==
LOC: CF 06:33
PROVIDERS: Visit Provider Anesthesiology
DX: M47.817 Spondylosis without myelopathy or radiculopathy, lumbosacral region (principal)
CPT/HCPCS: 64493; 64494; J2003; J2795; J3301; Q9967

== ENCOUNTER 2024-07-08 09:40 | Outpatient (AMB) | payer OTHER, SELFPAY ==
[2024-07-08 09:49] VITALS: BP 111/72; PULSE 62; RESP 14; O2SAT 99
--- NOTE | 2024-07-08 09:49 | MHC.OFFVIS ---
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 Allergies iodine Allergy (Unknown, Verified 07/08/24 09:51) unknown oxycodone [Percocet] Allergy (Unknown, Verified 07/08/24 09:51) unknown penicillin V Allergy (Unknown, Verified 07/08/24 09:51) unknown pregabalin Allergy (Unknown, Verified 07/08/24 09:51) unknown risperidone [Risperdal] Allergy (Unknown, Verified 07/08/24 09:51) unknown Contrast dye Allergy (Unknown, Uncoded 05/08/24 10:38) unknown PFSH Medical History (Updated 08/23/23 @ 10:33 by Anabell Knox) 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 Father No problems noted. 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 ? ?Informed consent was explained to the patient. All questions were explained and? answered.? The patient was taken inside the operating room where she was positioned prone on the operating table. Time-out was performed delineating correct site, side, the nature of the procedure, patient's allergy, . All operating room staff was participating in OR time-out procedure. ? ? The lower back was prepped with ChloraPrep and draped with sterile utility towels.? C-arm was brought over the operating field and sq picture of L4-, L5 vertebra and S1 AREA were delineated on the screen.? Point of interest were delineated as confluence of superior articular process of L4 and L5 vertebra bilaterally with corresponding transverse processes as well as confluence of the sacral alae bilaterally with superior articular process of S1.? The projection of the point of interest to the skin were injected with the small amount of local anesthetic lidocaine 2% mixed with ropivacaine 0.5% 1-1 approximately 1 cc.? After that 22 gauge 3.5 inch spinal needle was driven sequentially to the points of interest in tunnel vision fashion. After needles gently contacted the bone at the point of interests the needle was injected with small amount of the contrast.? The injection of the contrast did not demonstrate any intravascular or intrathecal spread of the contrast.? After that injection of the? ropivacaine 0.5%-1cc mixed with kenalog was performed at each needle location.?total dose of kenalog is 80 mg .After that the needles were removed and Bandaids were applied. ? Upon completion of the injections? needle was? removed and sterile Band-Aids were applied.? The patient tolerated procedure very well. Orders: Orders FL guidance in treatment room Today M47.817 - Spondylosis without myelopathy or radiculopathy, lumbosacral region Coding Level of Care Code Procedure Only Diagnoses Spondylosis of lumbosacral spine without myelopathy M47.817
[2024-07-08 11:19] VITALS: BP 107/62; PULSE 64; RESP 16; O2SAT 99
== END 2024-07-08 11:30 | disposition home or self-care (01) ==
LOC: HO.PMCPRC 09:40
PROVIDERS: PCP Family Medicine; Visit Provider Anesthesiology
DX: M47.817 Spondylosis without myelopathy or radiculopathy, lumbosacral region (principal)
CPT/HCPCS: 64493; 64494

== ENCOUNTER 2024-08-14 13:18 | Outpatient (AMB) | payer OTHER, SELFPAY ==
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
[2024-08-14 13:20] VITALS: BP 114/55; PULSE 71; RESP 16; O2SAT 97
--- OUTSIDE RECORDS SUMMARY | 2024-08-14 13:26 | XMS_ITS | Encounter Summary ---
Author Organization [facility] Address [address] [place] [address] Care Team Providers Care Research Lab Assistant Name Role Phone Monse Kinney MD Primary Care Provider + Encounter Details Date Type Department Care Team (Late st Contact Info) Description 01/18/2024 Lab Requisition [facility] - Main Lab [address] [facility] [employer] [address] Monse Kinney MD [address] [id number] Obesity, unspecified; Abnormal finding of blood chemistry, unspecified Social History Tobacco Use Types Packs/Day Years Used Date Smoking Tobacco: Never Assessed Comments Unknown Sex and Gender Information Value Date Recorded Sex Assigned at Not on file Legal Sex Female 9:29 AM EST Gender Identity Not on file Sexual Orientation Not on file documented as of this encounter Plan of Treatment Not on file documented as of this encounter Procedures Procedure Name Priority Date/Time Associated Diagnosis Comments COMPLETE BLOOD COUNT Routine 01/18/2024 8:14 AM EST Obesity, unspecified Abnormal finding of blood chemistry, unspecified BASIC METABOLIC PANEL Routine 01/18/2024 8:14 AM EST Obesity, unspecified Abnormal finding of blood chemistry, unspecified documented in this encounter Results * Basic metabolic panel (01/18/2024 8:14 AM EST) Sodium 141 133 - 145 mmol/L LAB CHEMISTRY METHOD 01/18/2024 11:26 AM EST [facility] Potassium 4.1 3.5 - 5.5 mmol/L LAB CHEMISTRY METHOD 01/18/2024 11:26 AM [facility] Chloride 108 96 - 110 mmol/L LAB CHEMISTRY METHOD 01/18/2024 11:26 AM [facility] CO2 23 21 - 32 mmol/L LAB CHEMISTRY METHOD 01/18/2024 11:26 AM [facility] Anion Gap 10 3 - 11 LAB CHEMISTRY METHOD 01/18/2024 11:26 AM [facility] Glucose 81 70 - 100 mg/dL LAB CHEMISTRY METHOD 01/18/2024 11:26 AM [facility] BUN 16 5 - 25 mg/dL LAB CHEMISTRY METHOD 01/18/2024 11:26 AM [facility] Creatinine 0.89 0.50 - 1.10 mg/dL LAB CHEMISTRY METHOD 01/18/2024 11:26 AM [facility] eGFR 81 >=60 mL/min/1. 73m2 LAB CHEMISTRY METHOD 01/18/2024 11:26 AM [facility] Comment:Calculation based on the Chronic Kidney Disease Epidemiology Collaboration (CKD-EPI) equation refit without adjustment for race. BUN/Creatinine Ratio 18.0 LAB CHEMISTRY METHOD 01/18/2024 11:26 AM [facility] Calcium 9.7 8.5 - 10.5 mg/dL LAB CHEMISTRY METHOD 01/18/2024 11:26 AM [facility] Blood Venous blood specimen / Unknown Venipuncture / Unknown 01/18/2024 8:14 AM EST 01/18/2024 10:02 AM EST us Monse Kinney MD LAB BLOOD ORDERABLES Fin al Result [facility] [address] [place] [address], * (ABNORMAL) Complete blood count (01/18/2024 8:14 AM EST) [facility] WBC 9.3 4.8 - 10.8 K/mcL LAB HEMETOLOGY METHOD 01/18/2024 11:15 AM [facility] RBC 4.60 3.80 - 4.80 M/mcL LAB HEMETOLOGY METHOD 01/18/2024 11:15 AM [facility] Hemoglobin 13.2 11.5 - 16.0 g/dL LAB HEMETOLOGY METHOD 01/18/2024 11:15 AM [facility] Hematocrit 43.6 35.0 - 47.0 % LAB HEMETOLOGY METHOD 01/18/2024 11:15 AM [facility] MCV 94.6 79.0 - 98.0 FL LAB HEMETOLOGY METHOD 01/18/2024 11:15 AM [facility] MCH 28.6 27.0 - 32.0 pcg LAB HEMETOLOGY METHOD 01/18/2024 11:15 AM [facility] MCHC 30.3(L) 32.0 - 37.0 g/dL LAB HEMETOLOGY METHOD 01/18/2024 11:15 AM [facility] RDW 14.3 11.0 - 15.0 % LAB HEMETOLOGY METHOD 01/18/2024 11:15 AM [facility] Platelets 306 130 - 400 K/mcL LAB HEMETOLOGY METHOD 01/18/2024 11:15 AM [facility] MPV 8.9 7.0 - 11.0 FL LAB HEMETOLOGY METHOD 01/18/2024 11:15 AM [facility] NRBC 0.0 <1.0 % LAB HEMETOLOGY METHOD 01/18/2024 11:15 AM [facility] NRBC Absolute 0.00 <0.10 K/mcL LAB HEMETOLOGY METHOD 01/18/2024 11:15 AM [facility] Blood Venous blood specimen / Unknown Venipuncture / Unknown 01/18/2024 8:14 AM EST 01/18/2024 10:02 AM EST us Monse Kinney MD LAB BLOOD ORDERABLES Fin al Result [facility] [address] [place] [address], documented in this encounter Visit Diagnoses Diagnosis Obesity, unspecified Abnormal finding of blood chemistry, unspecified documented in this encounter Care Teams Research Lab Assistant Relationship Specialty Start Date End Date Monse Kinney MD [address] [place] [id number] PCP - General Family Medicine 01/18/24 documented as of this encounter
--- OUTSIDE RECORDS SUMMARY | 2024-08-14 13:26 | XMS_ITS | Data Portability ---
Author Organization [facility], [facility] [place] Address [address] [place] [address] Care Team Providers Care Double Needle Operator Lockstitch Name Role Phone DAMION MONTALVO Primary Care Provider Assessment Encounter Date Assessment Date Assessment LastModified [...] grossly intact. Eyes: Sclera are not blue. board worker II-XII are grossly intact. Full extraocular motion. Neck: Supple with age-appropriate ROM. No tracheal deviation. No obvious JVD. Respiratory: Non-labored breathing. Symmetric excursion. No audible wheezing or crackles. Skin: No rashes, lesions, wounds to the lower extremities. Normal turgor and coloration. Musculoskeletal: On examination of the bilateral knees, there are no discernible effusions, erythema or ecchymosis. Range of motion from 0-120 bilaterally. Her knees are grossly stable ligamentously. [...] injection of 1cc of Kenalog 40 and 4cc s of Lidocaine 1% was performed using [...] injection of 1cc of Kenalog 40 and 4cc s of Lidocaine 1% was performed using [...] visit note. This note was generated with [facility] speech recognition tire rebuilder dictation software. Please excuse any errors that [...] grossly intact. Eyes: Sclera are not blue. board worker II-XII are grossly intact. Full extraocular motion. Neck: Supple with age-appropriate ROM. No tracheal deviation. No obvious JVD. Respiratory: Non-labored breathing. Symmetric excursion. No audible wheezing or crackles. Skin: No rashes, lesions, wounds to the lower extremities. Normal turgor and coloration. Musculoskeletal: On examination of the bilateral knees, there are no discernible effusions, erythema or ecchymosis. Range of motion from 0-120 bilaterally. Her knees are grossly stable ligamentously. [...] injection of 1cc of Kenalog 40 and 4cc s of Lidocaine 1% was performed using [...] injection of 1cc of Kenalog 40 and 4cc s of Lidocaine 1% was performed using [...] visit note. This note was generated with [facility] speech recognition tire rebuilder dictation software. Please excuse any errors that may have been overlooked during review of this note. Sometimes, these errors may affect the content or meaning of a given sentence. Please call for corrections. marcel Not available 04/22/2024 14:49:50 Plan of Treatment Reminders Order Date Submit Date Provider Last Modified By Organization Details Last Modified Time Details Appointments None recorded. Lab None recorded. Referral wound care referral - LEFT FOOT PARTIAL WOUND DEHISSANC E-- TO BE SEEN WITHIN 1-[address] EDWARD PLEASE 2023 024 [email or web address] [facility], [address] [place] [address], [place], [address], 11:37:46 Procedures None recorded. Surgeries None recorded. Imaging XR, foot, 3 or more view - 317 right foot 3v -pt in [facility] r 2024 025 [email or web address] [facility], [address], [place], [address], 5 12:00:35 XR, cervical spine, 1 view - room 221 lateral cervical 2023 024 [facility], [address], [place], [address], 4 11:55:02 XR, shoulder, 2 or more view - room 221 right shoulder/ lateral cervical 2023 024 [facility], [address], [address], [place], [address], 4 11:55:02 Medication Orders None recorded. Patient [...] cervi duy spine , 1 view [email or web address]:/ [email or web address] ?Encry pted=s hAaTro YD8dLq bEUv6g %2BXZw aYqtaq 0bqfl% 2Fg9IQ a4ajBk vP9nXo QUaueC m3YtLR FvZlgJ JJ8mAn HZtai3 9p3278 AC0Kub n6MUqf eUC8mr 84%3D INTERFACE [facility] [address], [place], [address], 07/25/2023 12:46:39 07/25/19 24 07/25/2023 XR, shoul cely, 2 or more view [email or web address] ?Encry pted=s hAaTro YD8dLq bEUv6g %2BXZw aYqtaq 0bqfl% 2Fg9IQ a4ajBk vP9nXo QUaueC m3YtLR FvZlgJ JJ8mAn HZtai3 7j5514 AC0Kub n6MUqD eUC8mr 84%3D INTERFACE [facility] [address], [place], [address], 07/25/2023 12:48:42 07/25/19 24 07/25/2023 XR, shoul cely, 2 or more view [email or web address]:/ [email or web address] ?Encry pted=s hAaTro YD8dLq bEUv6g %2BXZw aYqtaq 0bqfl% 2Fg9IQ a4ajBk vP9nXo QUaueC m3YtLR FvZlgJ JJ8mAn HZtai3 3c2639 AC0Kub n6MUqD eUC8mr 84%3D INTERFACE [facility] [address], [place], [address], 07/25/2023 12:48:44 10/13/19 24 08/18/2021 imagi ng/di [...] a4ajBk vP9nXo QUaueC m3YtLR FvZlgJ JJ8mAn HZtai3 1z4769 AC0KqY nyBWKW kKiQtr MwF INTERFACE [facility] [address] [facility] [address], [place], [address], 04/24/2024 09:25:38 04/25/19 25 04/24/2024 XR, foot, 3 or more view [email or web address]:/ [email or web address] ?Encry pted=s hAaTro YD8dLq bEUv6g %2BXZw aYqtaq 0bqfl% 2Fg9IQ a4ajBk vP9nXo QUaueC m3YtLR FvZlgJ JJ8mAn HZtai3 7d3452 AC0KqY nyBWKW kKiQtr MwF INTERFACE [facility] [address] [facility] [address], [place], [address], 04/24/2024 09:25:40 Result Notes Documentation Provider Name and Address Organization Details Recorded Time Xr, Cervical Spine, 1 View : [email or web address] Encrypted=hnBfRzeSQ4wQejL Uv6g%3BALkzWyivj5hbyi%2Fg 4ACv7gaIdkF5yEjQRssbQm7Jc ONYnHbvJQV9kKkCEzqs54o436 2ZA2Gdgp6XUcycVI5eh10%3D Not Available [facility] 07/25/2023 12:4 6:39 Xr, Shoulder, 2 Or More View : [email or web address] Encrypted=frExXtfFD4fFjlZ Uv6g%3ZYDbnHbayw7gsbl%2Fg 7WJz3nzFhhP8oOvXEnbrWn3Yy FNUmGhoTXW9nNxYWsde38x844 7JJ8Sruz2DCwExWY4fm48%3D Not Available [facility] 07/25/2023 12:4 8:42 Xr, Shoulder, 2 Or More View : [email or web address] Encrypted=loNqDerRN4uNztD Uv6g%5JSOltPughb4ncva%2Fg 9VGz3toVscJ4nPfDGrsaIw4Xz PYHvKauRPK1dDtATqvp38w972 1XU2Ocbq5RFnWnZY8ix51%3D Not Available [facility] 07/25/2023 12:4 8:44 Xr, Foot, 3 Or More View : [email or web address] Encrypted=raNaHncNM4jKzpX Uv6g%3YCNccFjcus1cubt%2Fg 8FPu8vgLevT2tMzBFrqrGx5Ub AIFoWniFVZ5wQiJZjfs46z473 4PJ9VvFblDLGEwXeSolSjI Not Available [facility] 04/24/2024 09:25: 39 Xr, Foot, 3 Or More View : [email or web address] Encrypted=zmZmWvgYD1yKlrH Uv6g%4GRRwwZqlky2uuln%2Fg 6HDw6rfVjmA2oGgIUbteRn9So IMMfNfeQWQ0qOrVOuhr73r605 7JF9JjIpjFXTRzNdJkiNzJ Not Available [facility] 04/24/2024 09:25: 40 Problems Name Problem SNOMED Code Status Onset Date Resolution Date Notes Provider Name and Address Organization Details Recorded Time Osteoarthri tis of knee 215128358 Active 2023 Hudson Saavedra PA-C [address], [place], [address], [facility] 4 05:26:26 Pain of right shoulder joint 7063083865253 9100 Active 2023 Hudson Saavedra PA-C [address], [place], [address], [facility] 4 12:34:32 Neck pain 78158663 Active 2023 Hudson Saavedra PA-C [address], [place], [address], [facility] 4 12:34:46 Impingement syndrome of right shoulder region 7826450760196 02 Active 2023 Hudson Saavedra PA-C [address], [place], [address], [facility] 4 13:02:58 Problem Notes None recorded. Procedures Surgical History Date Name Laterality Status Provider Name and Address Organization Details Recorded Time 5 Knee Kenalog 40 1cc Injection, Bilateral completed Justus Jimenez MD [address], [place], [address], [facility] 04/22/2024 14:50:09 4 Knee Kenalog 40 1cc Injection, Bilateral completed Justus Jimenez MD [address], [place], [address], [facility] 10/09/2023 10:46:46 4 Sports Shoulder completed Hudson Saavedra PA-C [address], [place], [address], [facility] 07/25/2023 13:02:32 4 Knee Kenalog 40 1cc Injection, Bilateral completed Hudson Saavedra PA-C [address], [place], [address], [facility] 06/27/2023 05:26:07 Imaging Results None recorded. Procedure Notes None recorded. Medical Equipment None Reported. Allergies Allergen ID Allergen Name Allergen Category Reaction Reaction Severity Criticality Documentation Date Start Date Code Code System Note Provider Name and Address Organization Details Recorded Time 84357 Lyrica medicatio n Not available Not available Not available 04/16/20232011 67151 1 RxNorm Aller gyRea ction : 'Skin React ion, Asthm a/Viviana rt of Breat h'; Not Available [facility] 4 13:40:09 90065 acetamino phen / oxycodone medicatio n Not available Not available Not available 04/16/20232011 66476 3 RxNorm Aller gyRea ction : 'Skin React ion, Asthm a/Viviana rt of Breat h'; Not Available [facility] 4 13:40:09 53531 Iodinated contrast media (substanc e) medicatio n Not available Not available Not available 04/16/20232019 91364 2004 SNOMED Aller gyNam e: 'Cont rast Dye'; Not Available [facility] 4 13:40:09 49736 iodine medicatio n Not available Not available Not available 04/16/20232019 5933 RxNorm Not Available [facility] 4 13:40:09 04500 Product containin g penicilli n (product) medicatio n Not available Not available Not available 04/16/20232019 71458 8001 SNOMED Not Available [facility] 4 13:40:09 Medications Name Sig Start Date [...] 2023 active Not Available Not Available Not Avai lable loperamide 2 mg capsule TAKE 1 CAPSULE [...] EACH NOSTRIL 2 TIMES A DAY VIA [employer] [address] KUMAR active Not Available Not Available [...] Not Available Not Available No t Available [employer] COVID-19 Antigen Home Test kit USE DIRECTED [...] Updated DateTime 04/22/2024 165.1 cm 65.1 kg/m2 288796.62 g ISHA JORDAN [facility] 04/22/2024 14:37:18 Date Recorded Body height Body mass index (BMI) Body weight Provider Name and Address Organization Details Last Updated DateTime 07/25/2023 165.1 cm 65.1 kg/m2 514464.62 g Hudson Saavedra PA-C [address], [address], [facility] 07/25/2023 12:34:04 Date Recorded Body height Body mass index (BMI) Body weight Body temperature Provider Name and Address Organization Details Last Updated DateTime 08/30/2023 165.1 cm 65.1 kg/m2 516270.62 g 97.2 [degF] ROSCOE ASCENCIO [facility] 08/30/2023 14:20:22 Date Recorded Body height Body mass index (BMI) Body weight Provider Name and Address Organization Details Last Updated DateTime 10/09/2023 165.1 cm 65.1 kg/m2 297921.62 g ISHA VÁZQUEZIREZ [facility] 10/09/2023 10:27:32 Social History None recorded. Functional Status None recorded. Mental Status None recorded. Family History Nothing Reported. Medical History Condition Response Allergies/Hayfever N Coronary Artery Disease N Anxiety/Depression N Breathing or lung disorders Y Emphysema N Nerve Disorders Y Thyroid Problems Y COPD N Pacemaker N Anemia N Kidney/Bladder Problems N Vascular Disease N Heart Trouble N Heart Attack (RI) N Gastrointestinal Disease Y Cholesterol N Diabetes N Autoimmune disease N [...] SNOMED-CT Code Diagnosis ICD10 Code Diagnosis Note [id number] MD Ryan Mahoney [address] [place] [address] 05/03/2023 10:04:53 05/23/2023 10:02:05 Foot pain 92053781 M79.672 Pain assoc iated with internal prosthetic device 326856158 T84.84XD [id number] PIOTR Weems [address] [place] [address] 06/26/2023 10:11:28 07/18/2023 12:24:58 Orthopedic hardware in situ 974530819 Z97.8 [id number] PIOTR Araujo [address] [place] [address] 06/27/2023 08:44:07 07/11/2023 09:08:48 Osteoarthritis of knee 598447581 M17.9 [id number] PIOTR Kay [address] [place] [address] 07/12/2023 13:51:07 08/03/2023 13:48:26 Pain in left foot 2975393582 28035 M79.639 [id number] MD Ryan Mahoney [address] [place] [address] 07/24/2023 10:44:52 08/23/2023 14:30:59 Postoperative care 961021270 Z48.89 [id number] PIOTR Araujo [address] [place] [address] 07/25/2023 11:53:33 08/15/2023 11:55:01 Pain of right shoulder joint 2226299820 1470870 M25.511 Neck pain 30763653 M54.2 Impingemen t syndrome of right shoulder region 6713849151 61943 M75.41 [id number] PIOTR Kay [address] [place], [place] [address] 08/30/2023 13:50:27 09/18/2023 11:37:46 Postoperative wound infection 17714229 T81.40XD [id number] MD Ryan Mendoza [address] [place] [address] 10/09/2023 10:00:47 11/06/2023 12:19:05 Osteoarthritis of left knee joint 8342903973 00441 M17.12 Osteoarthr itis of right knee joint 6124209987 86393 M17.11 [id number] MD ELENA Mendoza Ryan [address] [place] [address] 04/22/2024 14:30:32 05/08/2024 10:16:43 Osteoarthritis of right knee joint 8677067237 17130 M17.11 Osteoarthr itis of left knee joint 1369596501 33277 M17.12 [id number] [facility]R [facility] [place] [address] [place] [address] 04/24/2024 09:07:08 05/08/2024 12:00:34 Pain in right foot 1393850530 58673 M79.671 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 0524175566 386773 M21.621 Health Concerns Section Related Observation LastModified by Organization Detai ls LastModified Time None Recorded Concern Status LastModified by Organization Details LastModified Time None Recorded Advance Directives Directive None Recorded Payers Insurance Date Sequence Insurance Name Policy Number Policy [place] Covered Member ID [place] Member ID Guarantor Name [address] [place] [address] (MEDICAID HMO) [id number] Josi Moody [id number] Josi Moody Notes Date Note Type Note Provider Name and Address Organization Details Recorded Time 07/25/2023 text/html I am seeing the patient today under the supervision of Dr. Fried who was available but who did not see the patient. INTERVAL HISTORY: Josi is back today for evaluation of her right shoulder. Prior history outlined in my previous office visit which has documented previous MRI scan from [facility] which showed some tendinopathy and a partial-thickness rotator cuff tear. She additionally has complaints of both knees she has advanced arthritis but an elevated BMI of 65 I have recommended that she see a loom control chain builder and talk to her primary care doctor [...] views ordered and independently reviewed previously at [facility] of the 3 views of the right [...] complaints offered her subacromial space injection today. [facility] speech recognition tire rebuilder software was used to create portions of this document. An attempt at proofreading has been made to minimize errors. Please call for corrections Hudson Saavedra PA-C [address] [facility] [address] [facility], [place], [address], [facility] 07/25/2023 13:03:33 08/30/2023 text/html I am seeing [...] this plan. All questions were answered.Speech recognition tire rebuilder software was used to create portions of this document. An attempt at proofreading has been made to minimize errors. Please call for corrections. Jazmín Hendrix PA-C [address] [facility] [address], [place], [address], [facility] 08/30/2023 15:19:13 04/24/2024 text/html [...] it feels like somebody has lit a shoe singer ball of the foot constantly and it [...] condition, to please contact our office immediately. EUFEMIA CLARKE PA-C [address] [facility] [address], [place], [address], [facility] 04/24/2024 11:17:13 OBGyn Episode No OBEpisode recorded.
== END 2024-08-14 13:28 | disposition home or self-care (01) ==
PROVIDERS: PCP Family Medicine; Visit Provider Anesthesiology
DX: E66.01 Morbid (severe) obesity due to excess calories (principal); M79.7 Fibromyalgia; M47.817 Spondylosis without myelopathy or radiculopathy, lumbosacral region
CPT/HCPCS: 99213

== ENCOUNTER → 2024-08-14 13:18 | Outpatient (BNVA) | payer OTHER, SELFPAY | PROVIDERS: PCP Family Medicine; Visit Provider Anesthesiology | DX: M79.7 Fibromyalgia (principal); M47.817 Spondylosis without myelopathy or radiculopathy, lumbosacral region; M25.561 Pain in right knee; M25.562 Pain in left knee; M54.2 Cervicalgia; G89.29 Other chronic pain; E66.01 Morbid (severe) obesity due to excess calories | CPT/HCPCS: 99212 ==